=== PATIENT | male | born 1950 | race Caucasian/White ===

== ENCOUNTER → 2019-11-10 14:37 | Outpatient (CLI) | payer MEDICARE, SELFPAY ==
--- NOTE | 2019-11-10 14:51 | XR_ITS ---
PROCEDURE: XR LUMBAR SPINE 2-3V CLINICAL INDICATION: LOW BACK PAIN COMPARISON: CT HEADWO CT head/brain wo con from 08/29/2018 CR Chest from 08/29/2018 FINDINGS: There is mild lumbar scoliosis convex right. There is 13 sets of ribs with 4 lumbar vertebra. Degenerative disc disease is present at the thoracolumbar junction, L1-L2, L3-L4 and at the lumbosacral junction. Facet arthritic changes are present more severe on the left at the lumbosacral junction. No acute fracture or dislocation. IMPRESSION: Degenerative changes as described above Dictated by: Sheldon Garza MD 11/10/2019 15:32 Sheldon Garza MD in [place] 11/10/2019 15:32
== END ==
PROVIDERS: PCP Pediatrics; Visit Provider Pediatrics
DX: M54.40 Lumbago with sciatica, unspecified side (principal)
CPT/HCPCS: 72100

== ENCOUNTER 2021-05-11 13:27 | Emergency (ER) | payer MEDICARE, SELFPAY ==
[2021-05-11 13:42] VITALS: BP 132/87; PULSE 91; RESP 16; TEMP 37.1; O2SAT 95; BMI 25.7
[2021-05-11 14:02] LABS: UTC Strep Screen (Rapid) Negative (Negative)
[2021-05-11 14:03] LABS: UTC Influenza A Antigen Negative (Negative); UTC Influenza B Antigen Negative (Negative)
--- NOTE | 2021-05-11 14:25 | HMH.EDUTC ---
[facility] [place] Clinical Impression: Gastroenteritis Disposition: Home, Self-Care Condition on Discharge: Good Instructions: Viral Gastroenteritis, DI for Viral Gastroenteritis -- Adult, Ondansetron Additional Instructions: Drink plenty of fluids. Take tylenol or ibuprofen for pain or fever. Take the medications as directed. Follow up with your regular doctor. GO TO THE ER FOR ANY WORSENING SYMPTOMS Prescriptions: Ondansetron [Zofran 4mg ODT] 4 mg PO Q8HP PRN #20 tab PRN Reason: Nausea Transmission Status: [id number] Referrals: Francisco Coyle JR, MD [Primary Care Provider] - Time of Disposition: 16:03 Medical Decision Making - Medical Records Medical records reviewed: No: I reviewed the patient's medical records. - Maxwell Inquiry Pt receiving controlled substance: No Vital Signs: 05/11/21 13:42 05/11/21 16:17 Temperature 98.8 F 98.8 F Temperature Source Oral Pulse Rate 91 H Pulse Rate [Left] 91 H Respiratory Rate 16 16 Blood Pressure 132/87 Blood Pressure [Right Arm] 132/87 Blood Pressure Mean [Right Arm] 102 02 Sat by Pulse Oximetry 95 - Lab Data Lab Results 05/11/21 13:47: Influenza Type A Ag Negative, Influenza Type B Ag Negative 05/11/21 13:47: Strep Scn Rapid [facility] Negative 05/11/21 14:56: WBC 6.7, RBC 5.32, Hgb 17.0, Hct 51.6, MCV 96.9 H, MCH 31.9 H, MCHC 32.9, RDW 13.8, Plt Count 181, MPV 9.4, Neut % (Auto) 88.4 H, Lymph % (Auto) 5.8 L, Duval % (Auto) 5.2, Eos % (Auto) 0.2, Baso % (Auto) 0.4, Neut # (Auto) 5.9, Lymph # (Auto) 0.4 L, Duval # (Auto) 0.4, Eos # (Auto) 0.0, Baso # (Auto) 0.0, Total Counted 100, Neutrophils % (Manual) 88 H, Lymphocytes % (Manual) 2 L, Monocytes % (Manual) 10 H, Platelet Estimate Normal 05/11/21 14:56: Sodium 135 L, Potassium 3.7, Chloride 97 L, Carbon Dioxide 27, Anion Gap 14.7, BUN 17, Creatinine 1.00, Estimated Creat Clear 87, Estimated GFR 74, Est GFR ( Amer) 90, Glucose 144 H, Calcium 8.8, Total Bilirubin 1.0, AST 45, ALT 39, Alkaline Phosphatase 89, Total Protein 7.8, Albumin 4.9, Globulin 2.9, Albumin/Globulin Ratio 1.7, Amylase 79, Lipase 57 Result diagrams: 05/11/21 14:56 05/11/21 14:56 Orders (Tests/Meds): ED MEDICATIONS Discontinued Medications Generic Name Dose Route Start Last Admin Trade Name Freq PRN Reason Stop Dose Admin Sodium Chloride 1,000 mls @ 500 mls/hr 05/11/21 16:15 05/11/21 13:56 Sod Chlor 0.9% 1000ml Bag IV 06/10/21 16:14 500 mls/hr .Q2H KRISTINE Administration Ondansetron HCl 8 mg 05/11/21 15:59 05/11/21 16:17 Ondansetron 4mg Odt SL 05/11/21 16:00 8 mg ONCE ONE Administration ORDERS Category Date Time Status Strep Screen Confirmation Stat Micro 05/11/21 13:47 [place] [facility] [place] - General Stated complaint: vomiting, diarrhea Time Seen by Provider: 05/11/21 14:25 Mode of Arrival: Ambulatory Source of Information: Patient Limitations: No Limitations Description of Symptoms (Recalled from Triage Doc. by RN): pt c/o n/v/d and weakness x2 days. HEENT Symptoms (Recalled from RN notes): No Resp Symptoms (Recalled from RN notes): No Skin Symptoms (Recalled from RN notes): No MS Symptoms (Recalled from RN notes): No Functional Status (Recalled from RN notes): wnl - History of Present Illness Provider Complaint: He has had n/v/d for the past 2 days. - Related Data Previous Rx's Medication Instructions Recorded Meclizine HCl [Meclizine 25mg Tab] 25 mg PO TID PRN 7 Days #20 tab 08/29/18 Ondansetron [Zofran 4mg ODT] 4 mg PO Q8HP PRN #20 tab 05/11/21 Allergies Allergy/AdvReac Type Severity Reaction Status Date / Time No Known Allergies Allergy Verified 08/29/18 10:58 - Worker's Comp Is this a Worker's Comp case?: No [facility] History - Hepatitis A Screen Drug use history?: No High risk sexual behaviors?: No History of sexually transmitted infection?: No Currently employed?: No Childcare worker?: No Do you hav
[2021-05-11 15:09] LABS: Basophils % 0.4 % (0.1-2.0); Chloride 97 mmol/L (98-107); Eosinophils % 0.2 % (0.1-12.0); Hematocrit 51.6 % (42.0-52.0); Lymphocytes # 0.4 K/mm3 (0.7-4.5); Lymphocytes % 5.8 % (10-50); Mean Corpuscular HGB Conc 32.9 g/dL (31.8-35.4); Mean Corpuscular Hemoglobin 31.9 pg (27.0-31.2); Mean Corpuscular Volume 96.9 fl (80-94); Mean Platelet Volume 9.4 fl (7.4-10.4); Monocytes # 0.4 K/mm3 (0.1-1.0); Monocytes % 5.2 % (1.7-9.3); Neutrophils # 5.9 K/mm3 (1.8-7.8); Neutrophils % 88.4 % (37.0-80.0); Platelet Count 181 K/mm3 (142-424); Potassium 3.7 mmoL/L (3.5-5.1); Red Blood Count 5.32 M/mm3 (4.60-6.20); Red Cell Distribution Width 13.8 % (11.5-17.5); Sodium 135 mmol/L (136-145); White Blood Count 6.7 K/mm3 (4.8-10.8)
[2021-05-11 15:11] LABS: Alanine Aminotransferase 39 U/L (12-78); Amylase 79 U/L (30-110); Aspartate Amino Transferase 45 U/L (17-59); Blood Urea Nitrogen 17 mg/dl (9-20); Creatinine Clearance Estimated 87 mL/min (50-200); Estimated Glomerular Filt Rate 74 ml/min (>60); GFR (African American) 90 ML/MIN (>60)
[2021-05-11 15:12] LABS: Albumin Level 4.9 g/dl (3.5-5.0); Albumin/Globulin Ratio 1.7 (1.1-1.8); Alkaline Phosphatase 89 U/L (38-126); Anion Gap 14.7 mEq/L (5-15); Calcium 8.8 mg/dl (8.4-10.2); Carbon Dioxide 27 mmol/L (22.0-30.0); Globulin 2.9 g/dL (1.3-3.2); Glucose 144 mg/dl (74-100); Lipase 57 U/L (23-300); Total Protein,Serum 7.8 g/dl (6.3-8.2)
[2021-05-11 15:14] LABS: MANUAL DIFFERENTIAL MANUAL DIFFERENTIAL (MANUAL DIFF)
[2021-05-11 16:08] LABS: Lymphocytes % 2 % (10-50); Monocytes % 10 % (2-9); Neutrophils % 88 % (42-76); Platelet Estimate Normal; Total Cells Counted 100
[2021-05-11 16:17] VITALS: BP 132/87; PULSE 91; RESP 16; TEMP 37.1
== END 2021-05-11 16:19 | disposition home or self-care (01) ==
PROVIDERS: Emergency Provider Nurse Practitioner Family; PCP Pediatrics
DX: K52.9 Noninfective gastroenteritis and colitis, unspecified (principal)
CPT/HCPCS: G0463; 80053; 82150; 83690; 85007; 85025; 87804; 87880; 96360; 99213; C9803; U0003; U0005

== ENCOUNTER 2021-10-01 11:55 | Emergency (ER) | payer MEDICARE, SELFPAY ==
[2021-10-01 12:40] VITALS: BP 141/87; PULSE 71; RESP 19; TEMP 36.9; O2SAT 98; BMI 25.0
--- NOTE | 2021-10-01 13:08 | HMH.EDUTC ---
[facility] [place] Disposition Clinical Impression: Exposure to COVID-19 virus Disposition: Home, Self-Care Condition on Discharge: Good Instructions: DI for COVID-19 (Suspected or Confirmed ), COVID-19: Protecting Yourself When You're at High Risk Additional Instructions: covid swab was sent to lab, call tomorrow for results. self isolate until test results are known to be negative No sign of a bacterial infection. Likely viral. Viruses can take 7-14 days to run their course. Nasal saline and bulb syringe or nose Nancy to remove nasal drainage to help with nasal congestion. Hard to eat, drink, sleep with nasal congestion so important to keep this cleaned out. Monitor temp. Tylenol or Motrin as needed for pain or fever Encourage fluids, water, Gatorade, Powerade, Pedialyte if infant/toddler/child Warm salt water gargles Warm fluids Sore throat lozenges Sleep elevated Humidifier/vaporizer Follow-up immediately for new or worsening symptoms or no noticeable improvement over the next 48-72 hours. Referrals: Provider,Referral, [Primary Care Provider] - Time of Disposition: 13:21 Medical Decision Making - Maxwell Inquiry Pt receiving controlled substance: No Vital Signs: 10/01/21 12:40 10/01/21 13:19 Temperature 98.4 F 98.4 F Temperature Source Oral Pulse Rate 71 Pulse Rate [Right Brachial] 71 Respiratory Rate 19 19 Blood Pressure 141/87 H Blood Pressure [Right Arm] 141/87 H Blood Pressure Mean [Right Arm] 105 Blood Pressure Source [Right Arm] Automatic Cuff Blood Pressure Position [Right Arm] Sitting 02 Sat by Pulse Oximetry 98 Oxygen Delivery Method Room Air Orders (Tests/Meds): ORDERS Category Date Time Status Covid-19 Nasal PCR ([facility]) Routine Lab 10/01/21 12:40 Received [facility] [place] HPI - General Chief complaint: Urgent Treatment Center Stated complaint: RUNNY NOSE-SORE THROAT Time Seen by Provider: 10/01/21 13:08 Mode of Arrival: Ambulatory Source of Information: Patient Limitations: No Limitations Description of Symptoms (Recalled from Triage Doc. by RN): COVID TEST D/T EXPOSURE HEENT Symptoms (Recalled from RN notes): No Resp Symptoms (Recalled from RN notes): No Skin Symptoms (Recalled from RN notes): No MS Symptoms (Recalled from RN notes): No Functional Status (Recalled from RN notes): WNL - History of Present Illness Provider Complaint: 71 yr old male presents for covid test. pt states he was exposed and having runny nose and cough - Related Data Previous Rx's Medication Instructions Recorded Meclizine HCl [Meclizine 25mg Tab] 25 mg PO TID PRN 7 Days #20 tab 08/29/18 Ondansetron [Zofran 4mg ODT] 4 mg PO Q8HP PRN #20 tab 05/11/21 Allergies Allergy/AdvReac Type Severity Reaction Status Date / Time No Known Allergies Allergy Verified 08/29/18 10:58 - Worker's Comp Is this a Worker's Comp case?: No [facility] History - Hepatitis A Screen Attestation statement:: This patient has been screened for Hepatitis A risk factors. I have reviewed the patient's past medical history: Yes Medical History: Denies:: Diabetes Mellitus Type 1, Diabetes Mellitus Type 2 - Social History Alcohol Intake: never Occupational Status: retired ROS Obtained: Yes Systems reviewed as appropriate & no additional complaints - Constitutional Constitutional: Reports system reviewed and no additional complaints, except as docu, Denies fever(s) - Eyes Eyes: Reports system reviewed and no additional complaints, except as docu, Denies change in vision - ENT Ears, Nose, Mouth, and Throat: Reports system reviewed and no additional complaints, except as docu, Reports nasal discharge - Cardiovascular Cardiovascular: Reports system reviewed and no additional complaints, except as docu, Denies chest pain - Respiratory Respiratory: Reports system reviewed and no additional complaints, except as docu, Reports cough - Gastrointestinal Gastrointestingal: Reports: system reviewed and no additional
[2021-10-01 13:19] VITALS: BP 141/87; PULSE 71; RESP 19; TEMP 36.9; O2SAT 98
== END 2021-10-01 13:29 | disposition home or self-care (01) ==
PROVIDERS: Emergency Provider Nurse Practitioner Family
DX: R07.0 Pain in throat (principal); Z20.822 Contact with and (suspected) exposure to COVID-19; R09.81 Nasal congestion; R05.9 Cough, unspecified
CPT/HCPCS: 99212; C9803; G0463; U0003; U0005

== ENCOUNTER 2021-10-15 15:12 | Emergency (ER) | payer MEDICARE, SELFPAY ==
--- NOTE | 2021-10-15 15:18 | XR_ITS ---
PROCEDURE INFORMATION: Exam: XR Right Hip Exam date and time: 10/15/2021 3:18 PM Age: 71 years old Clinical indication: Hip pain; Right hip; Additional info: Injury. Twisted and is unable to bear weight. TECHNIQUE: Imaging protocol: Radiologic exam of the Right hip. Views: 2 or 3 views hip with pelvis when performed. COMPARISON: CR XR LUMBAR SPINE 2-3V 11/10/2019 2:54 PM FINDINGS: Bones/joints: There are mild degenerative changes in the right hip joint. There is no evidence of acute fracture. There is no evidence of joint malalignment or dislocation. Soft tissues: No focal soft tissue swelling. IMPRESSION: 1. There are mild degenerative changes in the right hip joint. 2. No evidence of acute fracture. 3. No evidence of acute dislocation.
[2021-10-15 15:35] VITALS: BP 140/77; PULSE 77; RESP 19; TEMP 36.7; O2SAT 95; BMI 24.5
--- NOTE | 2021-10-15 15:50 | HMH.EDUTC ---
[facility] [place] Disposition Clinical Impression: Hip pain, right Disposition: Home, Self-Care Condition on Discharge: Good Instructions: Help for Hip Pain, Sciatica Additional Instructions: Weight bearing as tolerated rest Ice with cold pack for 20 minutes remove may repeat for comfort every hour Ibuprofen every 6 hours as needed for pain or inflammation. If needs something more you can take Tylenol every 4 hours as needed as long as her primary care has told he was okayed for you to take both. If improving any do not need to follow-up you can bring begin exercising 2-3 weeks after injury. Follow-up immediately if new or worsening symptoms or no noticeable improvement over the next 3-5 days. follow up with pcp Referrals: Provider,Referral, [Primary Care Provider] - Time of Disposition: 16:21 Medical Decision Making - Maxwell Inquiry Pt receiving controlled substance: No Vital Signs: 10/15/21 15:35 Temperature 98.0 F Temperature Source Oral Pulse Rate [Left Brachial] 77 Respiratory Rate 19 Blood Pressure [Left Arm] 140/77 Blood Pressure Mean [Left Arm] 98 Blood Pressure Source [Left Arm] Automatic Cuff Blood Pressure Position [Left Arm] Sitting 02 Sat by Pulse Oximetry 95 Oxygen Delivery Method Room Air Orders (Tests/Meds): ED MEDICATIONS Discontinued Medications Generic Name Dose Route Start Last Admin Trade Name Freq PRN Reason Stop Dose Admin Dexamethasone Sodium Phosphate 4 mg 10/15/21 16:15 Dexamethasone 4mg/Ml 1ml Vial IM 10/15/21 16:16 ONCE ONE [facility] [place] HPI - General Chief complaint: Urgent Treatment Center Stated complaint: pain in R leg, hip, cannot walk Time Seen by Provider: 10/15/21 15:50 Mode of Arrival: Ambulatory Source of Information: Patient Limitations: No Limitations Description of Symptoms (Recalled from Triage Doc. by RN): PATIENT REPORTS THAT HE TWISTED HIS LOWER BACK YESTERDAY AND AFTERWARD HAD SHARP PAIN TO RIGHT HIP AND THIGH ALL NIGHT, RATING IT 10/10. TODAY HE STATES HIS RIGHT HIP AND LEG FEELS LIKE JELLO AND HE CAN'T WALK ON IT HEENT Symptoms (Recalled from RN notes): No Resp Symptoms (Recalled from RN notes): No Skin Symptoms (Recalled from RN notes): No MS Symptoms (Recalled from RN notes): Yes Functional Status (Recalled from RN notes): WNL - History of Present Illness Provider Complaint: 71 yr old male presents for pain in rt hip. Pt states he was outside yestrday and twisted his lower back and felt a sharp pain in rt hip and thigh. pt states he got up to go to bathroom and can not walk. pt states he can not get his leg to work. - Related Data Allergies Allergy/AdvReac Type Severity Reaction Status Date / Time No Known Allergies Allergy Verified 08/29/18 10:58 - Worker's Comp Is this a Worker's Comp case?: No [facility] History - Hepatitis A Screen Attestation statement:: This patient has been screened for Hepatitis A risk factors. I have reviewed the patient's past medical history: Yes Medical History: Denies:: Diabetes Mellitus Type 1, Diabetes Mellitus Type 2 - Social History Alcohol Intake: never Occupational Status: retired ROS Obtained: Yes Systems reviewed as appropriate & no additional complaints - Constitutional Constitutional: Reports system reviewed and no additional complaints, except as docu, Denies fever(s) - Eyes Eyes: Reports system reviewed and no additional complaints, except as docu, Denies dry eyes - ENT Ears, Nose, Mouth, and Throat: Reports system reviewed and no additional complaints, except as docu, Denies lip swelling - Cardiovascular Cardiovascular: Reports system reviewed and no additional complaints, except as docu, Denies chest pain at rest - Respiratory Respiratory: Reports system reviewed and no additional complaints, except as docu, Denies change in phlegm color - Gastrointestinal Gastrointestingal: Reports: system reviewed and no additional complaints, except as docu. Denies: abdominal pain
[2021-10-15 16:22] VITALS: BP 140/77; PULSE 77; RESP 19; TEMP 36.7; O2SAT 95
== END 2021-10-15 16:33 | disposition home or self-care (01) ==
PROVIDERS: Emergency Provider Nurse Practitioner Family
DX: M25.551 Pain in right hip (principal)
CPT/HCPCS: 73502; 96372; 99212; G0463

== ENCOUNTER 2021-12-02 14:00 | Outpatient (RCR) | payer MEDICARE, SELFPAY | END 2021-12-02 14:05 | disposition home or self-care (01) | LOC: PT 14:00 | PROVIDERS: PCP Family Medicine; Visit Provider Family Medicine | DX: M54.50 Low back pain, unspecified (principal); M54.30 Sciatica, unspecified side | CPT/HCPCS: 97010; 97012; 97014; 97110; 97163; G0283 ==

== ENCOUNTER → 2021-12-21 13:48 | Outpatient (CLI) | payer MEDICARE, SELFPAY ==
[2021-12-21 17:01] LABS: Alanine Aminotransferase 24 U/L (12-78); Albumin/Globulin Ratio 1.6 (1.1-1.8); Alkaline Phosphatase 90 U/L (38-126); Aspartate Amino Transferase 27 U/L (17-59); Bilirubin,Total 0.5 mg/dl (0.2-1.3); Blood Urea Nitrogen 14 mg/dl (9-20); Carbon Dioxide 31 mmol/L (22.0-30.0); Chloride 100 mmol/L (98-107); Estimated Glomerular Filt Rate 96 ml/min (>60); GFR (African American) 116 ML/MIN (>60); Globulin 2.5 g/dL (1.3-3.2); Glucose 97 mg/dl (74-100); Sodium 139 mmol/L (136-145); Total Protein,Serum 6.5 g/dl (6.3-8.2)
== END ==
PROVIDERS: PCP Family Medicine; Visit Provider Family Medicine
DX: M25.551 Pain in right hip (principal)
CPT/HCPCS: 36415; 80053

== ENCOUNTER → 2021-12-22 08:36 | Outpatient (CLI) | payer MEDICARE, SELFPAY ==
--- NOTE | 2021-12-22 08:36 | MR_ITS ---
FINAL REPORT CLINICAL HISTORY: with contrast bilateral leg weakness , burning sensation from knees down no injury/trauma FINDINGS: Multiplanar MR imaging of the lumbar spine was performed without contrast. On the sagittal T2-weighted images, there is abnormal decreased signal throughout the lumbar discs. Endplate reactive signal changes are most evident at L4-L5. The vertebrae are of normal height. There is minimal spondylolisthesis of L4 on L5. L1-2: There is no significant canal stenosis or neural foraminal narrowing. L2-3: There is no significant canal stenosis or neural foraminal narrowing. L3-4: Mild broad-based right paracentral disc protrusion with an extruded component extending inferiorly. Moderate to high-grade compromise on the right lateral recess. L4-5: Moderate to large disc bulge with a left paracentral protrusion component. Moderate right and high-grade left neural foraminal narrowing. L5-S1: Mild diffuse disc bulge with mild bilateral neural foraminal narrowing. Contrast enhancement surrounding extruded disc fragment on the right at L3-L4. Contrast enhancement surrounding protrusion on the left at L4-L5. IMPRESSION: Right paracentral inferior extrusion at L3-L4 with compromise on the right lateral recess and surrounding epidural fibrosis. Left paracentral protrusion at L4-L5 with surrounding epidural fibrosis. Reviewed, Interpreted and Dictated by Perico Velazquez MD Transcribed by Nabeel Lau Authenticated and . [facility]
== END ==
PROVIDERS: PCP Family Medicine; Visit Provider Family Medicine
DX: R29.898 Other symptoms and signs involving the musculoskeletal system (principal)
CPT/HCPCS: 72158; 76376; A9576

== ENCOUNTER → 2022-02-21 12:36 | Outpatient (CLI) | payer MEDICARE, SELFPAY ==
--- NOTE | 2022-02-21 12:41 | MR_ITS ---
FINAL REPORT CLINICAL HISTORY: .BILATERAL LOWER LEG WEAKNESS. BURNING SENSATION LOWER LEGS TO FEET. RIGHT HIP AND LEG PAIN TO KNEE. NO INJURY OR TRAUMA. FINDINGS: Multiplanar MR imaging of the thoracic spine was performed without contrast. On the sagittal T2-weighted images, disc degeneration is seen throughout. There is no evidence of fracture. The vertebral alignment is normal. There are several hemangiomas. The thoracic spinal cord has an unremarkable appearance without evidence of mass, edema or syrinx. There is no evidence of significant canal stenosis or cord compression. On the axial images, mild disc bulges and small anterior osteophytes are seen at multiple levels. No focal soft disc protrusion is identified. There is no evidence of significant canal stenosis or cord compression. No paraspinous soft tissue abnormality is identified. IMPRESSION: Multilevel mild degenerative disc disease and spondylosis. No focal soft disc protrusion or significant central canal stenosis. Reviewed, Interpreted and Dictated by Dutch Lim III, MD Transcribed by Nabeel Lau Authenticated and [facility]
--- NOTE | 2022-02-21 12:41 | MR_ITS ---
FINAL REPORT CLINICAL HISTORY: WEAKNESS OF LEFT LOWER EXTREMITY. .BILATERAL LOWER LEG WEAKNESS. BURNING SENSATION LOWER LEGS TO FEET. RIGHT HIP AND LEG PAIN TO KNEE. NO INJURY OR TRAUMA. FINDINGS: Multiplanar MR imaging of the cervical spine was performed without contrast. On the sagittal T2-weighted images, disc degeneration is seen throughout. There is kyphosis centered at C6-C7. There is no evidence of fracture. The vertebral alignment is normal. The cervical spinal cord has an unremarkable appearance without evidence of mass, edema or syrinx. The cervicomedullary junction is normal. C2-3: There is no significant canal stenosis or neural foraminal narrowing. C3-4: There is an annular bulge with uncovertebral osteophytes. There is severe bilateral neural foraminal narrowing. C4-5: There is an annular bulge with uncovertebral osteophytes. There is severe bilateral neural foraminal narrowing. There is mild central canal stenosis with an AP thecal sac diameter of 9 mm. C5-6: There is an annular bulge with a left paracentral disc protrusion and possible left C6 nerve root impingement. There is severe bilateral neural foraminal narrowing. C6-7: There is a disc osteophyte complex. There is mild right and moderate left neural foraminal narrowing. C7-T1: There is a disc osteophyte complex. There is moderate bilateral neural foraminal narrowing. T1-T2: An annular bulge is present. IMPRESSION: Multilevel degenerative disc disease with areas of neural foraminal narrowing as described. Left paracentral disc protrusion at C5-C6 with possible left C6 nerve root impingement. Mild central canal stenosis at C4-C5. Reviewed, Interpreted and Dictated by Dutch Lim III, MD Transcribed by Nabeel Lau Authenticated and [facility]
== END ==
PROVIDERS: PCP Family Medicine; Visit Provider Physician Assistant Medical
DX: R29.898 Other symptoms and signs involving the musculoskeletal system (principal); R29.6 Repeated falls; R26.81 Unsteadiness on feet
CPT/HCPCS: 72141; 72146; 76376

== ENCOUNTER → 2022-03-15 14:48 | Outpatient (POV) | payer MEDICARE, SELFPAY ==
--- NOTE | 2022-03-15 15:36 | EXP.PAIN.OV ---
HPI Data of Consult Patient: new to practice Consult date: 03/15/22 Requesting Physician: Debby Montgomery APRN Primary Care Provider: Ethan Kendrcik MD Consult Narrative Reason for consult: Low back pain, right leg pain History of present illness: Mr. Aleman is a 71 year old male who presents today as a new patient. He is a referral from Arlene Arizmendi's office. Today he rates his pain a 7 out of 10. Patient states he has pain all in his low back along the right side into his right hip and right upper thigh. Patient states this has been going on for the last several months. Patient states that earlier this year he was getting off of the lawnmower and stepped down and lost his footing and fell. Patient states he has continued to have symptoms since. Patient describes this as a constant achy sensation that is worse with increased activity. patient also states he does have burning/tingling to his bilateral lower extremities that has been going on for approximately 1 year or more. Patient has been to a neurosurgeon Dr. Sears who did recommend our office for possible lumbar epidurals to avoid surgery. Patient does take gabapentin 100 mg 3 times a day written by Dr. Sears office. Patient denies any side effects from this medication. Patient states this medication does provide significant improvement. Patient does take [id number] ibuprofen as needed for additional improvement. Patient states he did go to physical therapy for approximately 2 weeks and this did provide help however insurance denied any more visits. Patient states he is continue to do the at home exercising and stretching techniques that he was taught in physical therapy with minimal improvement. Patient denies using any creams or topicals. Patient states he does use heat and ice that provides significant improvement however only temporary. Patient does present today with a rolling walker as a ambulatory device. Patient denies any history of surgery on his back or history of injections. Patient is interested in any additional help that we can provide. His Maxwell is [phone]. It has been reviewed and appropriate. CC: Debby Montgomery APRN [facility] Disclaimer: The information contained in this section may have been updated after the patient was seen, as this information can be updated by other users. Medical History Hypertension Surgical History History of hernia surgery History of tonsillectomy Family History Father Diabetes mother Coronary artery disease father had heart attack Social History (Updated 03/15/22 @ 16:01 by Vashti Jama RN) Smoking Status: Never smoker alcohol intake: never current occupational status: retired Travel in the last 8 weeks: None Review of Systems Review of Systems Review of systems:: pertinent systems reviewed and negative unless documented below Review of systems (narrative): Review of Systems: General: No recent weight changes, no fever, no sleep disturbances Respiratory: No cough, no shortness of air, no recurring pulmonary infections Cardiovascular/peripheral vascular: No chest pain, no palpitations, no edema, no shortness of breath Gastrointestinal: No new onset incontinence, normal bowel movements reported Genitourinary: No new onset incontinence Musculoskeletal: Low back pain, right leg pain Psychiatric: [Normal mood/affect] Neurological: [Denies weakness in extremities], [denies balance issues] Meds Home Medications and Allergies Home Medications Medication Instructions Recorded Confirmed Type gabapentin 100 mg capsule 100 mg PO DAILY Pain 03/15/22 03/15/22 History lisinopril 20 mg tablet 20 mg PO DAILY BLOOD PRESSURE 03/15/22 History New Prescriptions to Start Prescriptions: Allergies Allergy/AdvReac Type Emily
[2022-03-15 15:45] VITALS: BP 135/84; PULSE 68; RESP 18; O2SAT 99; BMI 24.6
== END ==
PROVIDERS: PCP Family Medicine; Visit Provider Nurse Practitioner Family
DX: M51.16 Intervertebral disc disorders with radiculopathy, lumbar region (principal); M79.604 Pain in right leg; M43.16 Spondylolisthesis, lumbar region
CPT/HCPCS: 99202; G0463

== ENCOUNTER 2022-03-21 12:39 | Day surgery (SDC) | payer MEDICARE, SELFPAY ==
[2022-03-21 12:51] VITALS: BP 144/76; PULSE 72; RESP 18; TEMP 36.8; O2SAT 100; BMI 24.6
[2022-03-21 12:53] VITALS: BP 144/62; PULSE 68; RESP 18; O2SAT 98
--- NOTE | 2022-03-21 13:03 | P.PCN_ITS ---
Procedure Date: 03/21/22 Time: 12:50 Anesthesiologist:: Perico Quiñones CRNA Complications:: None Pre-procedure Diagnosis:: Degenerative disc disease lumbar spine multiple levels. Lumbar radiculopathy. Disc bulge L3-4, L4-5. Post-procedure Diagnosis:: Same. Indications for Procedure:: Very pleasant 71-year-old male comes to our clinic today for right L4-5, L5-S1 transforaminal epidural steroid injection. Patient complains of low right lumbar pain as well as right hip and leg radicular symptoms to the foot. Patient rates his pain 7/10. Procedure Details:: Details of the procedure were explained to the patient. The patient was taken the procedure room placed in the prone position. The area of the lumbar spine was cleansed using chlorhexidine as a cleansing solution. At this time using fluoroscopy guidance markers were placed on the right lateral border of the L4 and L5 vertebral body. The skin and subcutaneous tissue was anesthetized using 1% lidocaine and 25-gauge needle. At this time using a 22-gauge 3-1/2 inch spinal needle the right upper one third of the L4-5 foramen was accessed. The same was done at the right L5-S1 foramen. Needle positions were confirmed and a lateral view using fluoroscopy and contrast dye. At this time 1 cc of 1% lidocaine +20 mg of Depo-Medrol was injected at each level after negative aspiration. [place] were removed. Band-Aid applied. Patient tolerated the procedure without difficulty. There are no complications. Plan and Disposition:: Patient was discharged without incident
[2022-03-21 13:05] VITALS: BP 134/70; PULSE 66; RESP 18; O2SAT 100
== END 2022-03-21 13:05 | disposition home or self-care (01) ==
PROVIDERS: PCP Family Medicine; Visit Provider Nurse Anesthetist, Certified Registered
DX: M51.16 Intervertebral disc disorders with radiculopathy, lumbar region (principal)
CPT/HCPCS: 64483; 64484; J1030

== ENCOUNTER → 2022-04-03 13:12 | Outpatient (POV) | payer MEDICARE, SELFPAY ==
[2022-04-03 13:49] VITALS: BP 144/72; PULSE 67; RESP 18; O2SAT 97; BMI 24.9
--- NOTE | 2022-04-03 13:53 | A.OFFVIS_ITS ---
[facility] Pain Management SOAP Note Subjective:: Patient is a pleasant 71-year-old who presents today for follow-up of right transforaminal epidural steroid injection at L4-L5 and L5-S1 on 03/21/2022. We are currently treating the patient for low back pain, degenerative disc disease of lumbar spine with lumbar radiculopathy symptoms, right leg pain, spondylolisthesis of L4-L5. Today the patient states he has had at least 90 to 100% improvement following this injection and the combination of gabapentin 100 mg 3 times a day added to his medication regimen. Patient states the tingling sensations in his lower legs has greatly improved. Patient states he has been able to increase his activity with decreased pain. Patient does state he continues to have some right hip pain however overall he is doing well. Patient does believe that he has a right knee meniscus tear however he states he has not had any imaging of this joint. Patient continues to use heat and ice for temporary relief his Maxwell is [id number]. Its been reviewed and appropriate. Review of Systems: General: No recent weight changes, no fever, no sleep disturbances Respiratory: No cough, no shortness of air, no recurring pulmonary infections Cardiovascular/peripheral vascular: No chest pain, no palpitations, no edema, no shortness of breath Gastrointestinal: No new onset incontinence, normal bowel movements reported Genitourinary: No new onset incontinence Musculoskeletal: Low back pain, right hip pain Psychiatric: [Normal mood/affect] Neurological: [Denies weakness in extremities], [denies balance issues] Objective:: Physical Exam: General: Alert and oriented x3, no acute distress, pleasant and cooperative Lungs: Respirations even and unlabored, symmetrical chest expansion Eyes: PERRL Musculoskeletal: Flexion and extension of lumbar [spine] somewhat guarded secondary to pain, [antalgic gait noted] Neurological: Speech clear, no gross sensory deficit ORT score updated with low risk Assessment:: Low back pain, degenerative disc disease of lumbar spine with lumbar radiculopathy symptoms, right leg pain, spondylolisthesis of L4-L5 Plan:: Patient has had significant improvement following his transforaminal epidural and does not require any additional therapy at this time. I have discussed with the patient that he may benefit from physical therapy in the future for his right knee and right hip pain however at this time he would like to wait. I have also discussed with the patient that we can order right knee imaging in the future. Patient will return to clinic in 1 month for reevaluation of symptoms and follow-up. Patient has been instructed to contact the clinic with any concerns before the next appointment. Dr. Tarango has reviewed this note and agrees with this plan of care. This note was dictated using voice recognition software and make contain errors or omissions. [facility] Disclaimer: The information contained in this section may have been updated after the patient was seen, as this information can be updated by other users. Medical History Hypertension Surgical History History of hernia surgery History of tonsillectomy Family History Father Diabetes mother Coronary artery disease father had heart attack Social History Smoking Status: Never smoker alcohol intake: never current occupational status: retired Travel in the last 8 weeks: None
== END ==
PROVIDERS: PCP Family Medicine; Visit Provider Nurse Practitioner Family
DX: M51.16 Intervertebral disc disorders with radiculopathy, lumbar region (principal); M43.16 Spondylolisthesis, lumbar region; M79.604 Pain in right leg
CPT/HCPCS: 99212; G0463

== ENCOUNTER → 2022-05-08 13:15 | Outpatient (POV) | payer MEDICARE, SELFPAY ==
--- NOTE | 2022-05-08 13:30 | EXP.PAIN.SOA ---
[facility] Pain Management SOAP Note Subjective:: Patient is a pleasant 71-year-old male who presents today for 1 month follow-up. We are currently treating the patient for degenerative disc disease of lumbar spine with lumbar radiculopathy symptoms, low back pain, right leg pain, spondylolisthesis of L4 on L5. Today he rates his pain a 0 out of 10. Patient denies any new trauma or injury. Patient denies any change to location or type of pain he experiences. Patient states that the last injection still seems to be providing significant relief. Patient did have a right transforaminal epidural of L4-L5 and L5-S1 on 03/21/2022. Patient rates at least 90 to 100% improvement. Patient states that he will occasionally still have pain along his right side at night when he sleeping however this is very tolerable and does not require any interventional therapy at this time. Patient is prescribed gabapentin 100 mg 3 times a day. Patient states that he is currently trying to wean off his gabapentin and Dr. Sears has gone over the recommendations for decreasing the dosage safely. Patient denies any specific side effects from coming off of this medication. Patient states that he has had 3 days this week of indigestion which is not typical for him. Patient states he is still continuing at home exercising to improve his strength in his legs. His Maxwell is [id number]. Its been reviewed and appropriate. Review of Systems: General: No recent weight changes, no fever, no sleep disturbances Respiratory: No cough, no shortness of air, no recurring pulmonary infections Cardiovascular/peripheral vascular: No chest pain, no palpitations, no edema, no shortness of breath Gastrointestinal: No new onset incontinence, normal bowel movements reported Genitourinary: No new onset incontinence Musculoskeletal: Low back pain Psychiatric: [Normal mood/affect] Neurological: [Denies weakness in extremities], [denies balance issues] Objective:: Physical Exam: General: Alert and oriented x3, no acute distress, pleasant and cooperative Lungs: Respirations even and unlabored, symmetrical chest expansion Eyes: PERRL Musculoskeletal: Flexion and extension of lumbar [spine] somewhat guarded secondary to pain, [antalgic gait noted] Neurological: Speech clear, no gross sensory deficit Assessment:: degenerative disc disease of lumbar spine with lumbar radiculopathy symptoms, low back pain, right leg pain, spondylolisthesis of L4 on L5 Plan:: Patient continues to have significant relief following his last right transforaminal epidural. I have counseled the patient that he may benefit from physical therapy however at this time he would like to continue his at home exercising. I have counseled the patient that he just has to let me know if he would like for us to order this additionally. Patient will return to clinic in 3 months for reevaluation of symptoms and plan of care. Patient has been instructed to contact the clinic with any concerns before the next appointment. Dr. Tarango has reviewed this note and agrees with this plan of care. This note was dictated using voice recognition software and make contain errors or omissions. [facility] Disclaimer: The information contained in this section may have been updated after the patient was seen, as this information can be updated by other users. Medical History Hypertension Surgical History History of hernia surgery History of tonsillectomy Family History Father Diabetes mother Coronary artery disease father had heart attack Social History Smoking Status: Never smoker alcohol intake: never current occupational status: retired Travel in the last 8 weeks: None
[2022-05-08 13:38] VITALS: BP 133/82; PULSE 62; RESP 18; O2SAT 98; BMI 24.6
== END ==
PROVIDERS: PCP Family Medicine; Visit Provider Nurse Practitioner Family
DX: M51.16 Intervertebral disc disorders with radiculopathy, lumbar region (principal); M43.16 Spondylolisthesis, lumbar region; M79.604 Pain in right leg
CPT/HCPCS: 99212; G0463

== ENCOUNTER → 2022-08-03 13:41 | Outpatient (POV) | payer MEDICARE, SELFPAY ==
[2022-08-03 13:59] VITALS: BP 155/77; PULSE 59; RESP 19; O2SAT 97; BMI 25.0
--- NOTE | 2022-08-03 14:03 | A.OFFVIS_ITS ---
[facility] Pain Management SOAP Note Subjective:: Patient is a pleasant 71-year-old male who presents today for follow-up. We are currently treating the patient for degenerative disc disease of lumbar spine with lumbar radiculopathy symptoms, low back pain, spondylolisthesis of L4 on L5. Today he rates his pain a 0 out of 10. Patient denies any new trauma or injury. He states he still feels like he is getting some improvements from the right transforaminal epidural he had back in March. He does state he will occasionally have pain in his right hip and right thigh but it is random or at times when he has had increased activity. He does state that he feels like he is still not walking in the correct positioning and will occasionally have weakness. Patient does use a rolling walker for help with ambulation. Patient is not currently on any scheduled medications. His Maxwell is [id number]. Has been reviewed and appropriate. Review of Systems: General: No recent weight changes, no fever, no sleep disturbances Respiratory: No cough, no shortness of air, no recurring pulmonary infections Cardiovascular/peripheral vascular: No chest pain, no palpitations, no edema, no shortness of breath Gastrointestinal: No new onset incontinence, normal bowel movements reported Genitourinary: No new onset incontinence Musculoskeletal: Low back pain Psychiatric: [Normal mood/affect] Neurological: [Denies weakness in extremities], [denies balance issues] Objective:: Physical Exam: General: Alert and oriented x3, no acute distress, pleasant and cooperative Lungs: Respirations even and unlabored, symmetrical chest expansion Eyes: PERRL Musculoskeletal: Flexion and extension of lumbar [spine] somewhat guarded secondary to pain, [antalgic gait noted] Neurological: Speech clear, no gross sensory deficit Assessment:: Degenerative disc disease of lumbar spine with lumbar radiculopathy symptoms, low back pain, spondylolisthesis of L4 on L5 Plan:: Patient is doing well following his transforaminal epidural from March and does not require any additional injective therapy at this time. I will order the patient physical therapy. Patient will return to clinic in 3 months for reevaluation of symptoms and plan of care. Patient has been instructed to contact the clinic with any concerns before the next appointment. Dr. Tarango has reviewed this note and agrees with this plan of care. This note was dictated using voice recognition software and make contain errors or omissions. [facility] Disclaimer: The information contained in this section may have been updated after the patient was seen, as this information can be updated by other users. Medical History Hypertension Surgical History History of hernia surgery History of tonsillectomy Family History Father Diabetes mother Coronary artery disease father had heart attack Social History Smoking Status: Never smoker alcohol intake: never current occupational status: retired Travel in the last 8 weeks: None
== END ==
PROVIDERS: PCP Family Medicine; Visit Provider Nurse Practitioner Family
DX: M51.16 Intervertebral disc disorders with radiculopathy, lumbar region (principal); M43.16 Spondylolisthesis, lumbar region
CPT/HCPCS: 99212; G0463

== ENCOUNTER 2022-08-08 18:43 | Emergency (ER) | payer MEDICARE, SELFPAY ==
[2022-08-08 18:44] VITALS: BP 142/84; PULSE 67; RESP 18; TEMP 37; O2SAT 95; BMI 25.7
--- NOTE | 2022-08-08 18:54 | EXP.UTC ---
Discharge Plan Disposition Patient Disposition: Home, Self-Care Prescriptions Prescriptions: New ondansetron HCl 4 mg Tablet 4 mg PO Q8H PRN (Reason: Nausea) Qty: 20 0RF Referrals Follow up/Referrals: Ethan Kendrick MD [Primary Care Provider] - See instructions Clinical Impressions Clinical Impression: Enteritis, Gastroesophageal reflux disease Instructions Patient Instructions: DI for Enteritis Discharge ED Provider: Fabricio (SELAM)Anmol [facility] HPI General Chief complaint: Abdominal Pain Stated complaint: Diarrhea possible Acid Reflex Time Seen by Provider: 08/08/22 18:54 Related Data Previous Rx's Medication Instructions Recorded ondansetron HCl 4 mg tablet 4 mg PO Q8H PRN Nausea #20 tabs 08/09/22 Allergies Allergy/AdvReac Type Severity Reaction Status Date / Time No Known Allergies Allergy Verified 12/22/21 10:54 [facility] Disclaimer: The information contained in this section may have been updated after the patient was seen, as this information can be updated by other users. Medical History Hypertension Surgical History History of hernia surgery History of tonsillectomy Family History Father Diabetes mother Coronary artery disease father had heart attack Social History Smoking Status: Never smoker alcohol intake: never current occupational status: retired Travel in the last 8 weeks: None ROS Obtained: Yes All systems reviewed & no additional complaints except as documented Constitutional Constitutional: Denies chills, Denies fever(s) and Reports poor appetite ENT Ears, Nose, Mouth, and Throat: Denies dizziness and Denies sore throat Cardiovascular Cardiovascular: Denies dyspnea Respiratory Respiratory: Denies chest congestion, Denies cough and Denies dyspnea Genitourinary Male Genitourinary: Denies hematuria, Denies urinary frequency, Denies urinary hesitancy, Denies urinary incontinence and Denies urinary urgency Musculoskeletal Musculoskeletal: Denies arthralgias Integumentary/Breasts Skin/Breast: Denies rash Neurologic Neurologic: Denies dizziness Physical Exam General General appearance: alert and in no apparent distress Head Head exam: atraumatic, normocephalic and normal inspection Eye Eye exam: Present normal appearance, PERRL and EOMI ENT ENT exam: Present normal exam, normal oropharynx, mucous membranes moist, TM's normal bilaterally and normal external ear exam Neck Neck exam: Present normal inspection, full ROM and trachea midline; Absent meningismus or lymphadenopathy Chest Chest inspection: Present normal inspection and symmetric chest wall rise; Absent tenderness Respiratory Respiratory exam: Present normal lung sounds bilaterally; Absent respiratory distress Cardiovascular Cardiovascular exam: Present regular rate and normal rhythm; Absent JVD Abdominal Exam Abdominal exam: Present soft and normal bowel sounds; Absent distention, tenderness or guarding Extremities Exam Extremities exam: Present normal inspection, full ROM and normal capillary refill; Absent calf tenderness Back Exam Back exam: Present normal inspection; Absent tenderness Neurological Exam Neurological exam: Present alert and oriented X3 Psychiatric Psychiatric exam: Present normal affect and normal mood Skin Skin exam: Present warm, dry, intact and normal color Lymphatic Lymphatic Findings: no adenopathy Medical Decision Making Medical Records Medical records reviewed: No I reviewed the patient's medical records. Maxwell Inquiry Pt receiving controlled substance: No Lab Data Result diagrams: 08/08/22 19:45 08/08/22 19:45
--- NOTE | 2022-08-08 19:30 | ECG_ITS ---
APPROVED REPORT Exam: Resting ECG HR:75 bpm ECG Measurements Heart Rate 75 AXES ND 144 P 68 QRSd 104 QRS -11 QT 378 T 47 QTc 407 Conclusion SINUS RHYTHM NORMAL ECG UNCONFIRMED REPORT Electronically signed by : Jim Titus MD 08/09/2022 17:34:32
[2022-08-08 19:43] VITALS: BP 140/84; PULSE 71; RESP 20; TEMP 37; O2SAT 99; BMI 26.4
--- NOTE | 2022-08-08 20:30 | XR_ITS ---
PROCEDURE INFORMATION: Exam: XR Chest Exam date and time: 08/08/2022 9:46 PM Age: 71 years old Clinical indication: Sternal or substernal pain; Additional info: Chest pain TECHNIQUE: Imaging protocol: Radiologic exam of the chest. Views: 2 views. COMPARISON: CR Chest 08/29/2018 11:10 AM FINDINGS: Lungs: Well aerated with no evidence of consolidations, interstitial patterns or pulmonary nodules. Pleural spaces: No evidence of effusions or pneumothorax. Heart/Mediastinum: The cardiomediastinal silhouette is normal in size and configuration. There is no evidence of cardiomegaly. Diaphragm: Focal eventration of the right hemidiaphragm. Bones/joints: Intact. IMPRESSION: No radiographic evidence of an acute pulmonary process.
--- NOTE | 2022-08-08 20:33 | CT_ITS ---
PROCEDURE INFORMATION: Exam: CT Abdomen And Pelvis With Contrast Exam date and time: 08/08/2022 10:01 PM Age: 71 years old Clinical indication: Bloating; Abdominal pain; Generalized; Prior surgery; Surgery date: 6+ months; Surgery type: Inguinal hernia repair x2; Additional info: Upper abd pain w/ gerd nausea TECHNIQUE: Imaging protocol: Computed tomography of the abdomen and pelvis with contrast. Radiation optimization: All CT scans at this facility use at least one of these dose optimization techniques: automated exposure control; mA and/or kV adjustment per patient size (includes targeted exams where dose is matched to clinical indication); or iterative reconstruction. Contrast material: ISOVUE; Contrast volume: 75 ml; Contrast route: IV; REPORTING DATA: Count of CT and Cardiac NM exams in prior 12 months: This patient has received 0 known CTs and 0 known cardiac nuclear medicine studies in the 12 months prior to the current study. COMPARISON: CR XR HIP RT 2-3V W/PELVIS 10/15/2021 3:18 PM FINDINGS: Lungs: Lung bases are free of consolidation effusions pneumothorax or pulmonary nodules. Liver: The liver is of normal size with no evidence of intrahepatic biliary dilatation . Multiple water density lesions compatible with cysts scattered throughout the liver ranging from subcentimeter in size to 4.4 cm. Gallbladder and bile ducts: There is no evidence of cholelithiasis gallbladder wall thickening or pericholecystic fluid. No ductal dilation identified. Pancreas: No focal lesions, inflammatory changes or ductal dilatation. Spleen: Intact with no focal lesions. No splenomegaly. Adrenal glands: Normal. No mass. Kidneys and ureters: No hydronephrosis or nephrolithiasis. Stomach and bowel: Stomach and proximal small bowel loops are not distended and otherwise unremarkable. There is mild diffuse dilatation of the mid and distal small bowel loops containing liquid stool and associated with mild wall thickening and enhancement . Air and stool scattered throughout nondilated large bowel loops. Mild colonic diverticulosis without acute inflammatory changes. Air-fluid level identified on the rectum compatible with liquid stool. Appendix: No evidence of appendicitis. Intraperitoneal space: Unremarkable. No free air. No significant fluid collection. Vasculature: Unremarkable. No abdominal aortic aneurysm. Lymph nodes: Unremarkable. No enlarged lymph nodes. Urinary bladder: Unremarkable as visualized. Reproductive: Unremarkable as visualized. Bones/joints: Unremarkable. No acute fracture. Soft tissues: Unremarkable. IMPRESSION: 1. Mild diffuse dilatation of the mid and distal small bowel loops containing liquid stool , associated with mild wall thickening and enhancement suggestive of enteritis. 2. Mild colonic diverticulosis. 3. Liver cysts as described above.
[2022-08-08 20:44] LABS: Amylase 86 U/L (30-110)
[2022-08-08 20:45] LABS: Alanine Aminotransferase 29 U/L (12-78); Albumin Level 4.5 g/dl (3.5-5.0); Alkaline Phosphatase 103 U/L (38-126); Anion Gap 13.9 mEq/L (5-15); Aspartate Amino Transferase 32 U/L (17-59); Bilirubin,Indirect 0.9 mg/dL (0.0-0.9); Bilirubin,Total 0.9 mg/dl (0.2-1.3); Blood Urea Nitrogen 9 mg/dl (9-20); Calcium 9.4 mg/dl (8.4-10.2); Carbon Dioxide 26 mmol/L (22.0-30.0); Chloride 101 mmol/L (98-107); Creatinine Clearance Estimated 86 mL/min (50-200); Estimated Glomerular Filt Rate 111 ml/min (>60); GFR (African American) 135 ML/MIN (>60); Glucose 141 mg/dl (74-100); Lipase 81 U/L (23-300); Magnesium 2.4 mg/dl (1.6-2.3); Potassium 3.9 mmoL/L (3.5-5.1); Sodium 137 mmol/L (136-145); Total Protein,Serum 7.5 g/dl (6.3-8.2)
[2022-08-08 20:49] LABS: Basophils % 0.2 % (0.1-2.0); Eosinophils # 0.1 K/mm3 (0.0-0.4); Eosinophils % 0.8 % (0.1-12.0); Hematocrit 49.4 % (42.0-52.0); Hemoglobin 16.1 g/dL (14.1-18.0); Lymphocytes # 1.5 K/mm3 (0.7-4.5); Lymphocytes % 15.3 % (10-50); Mean Corpuscular HGB Conc 32.5 g/dL (31.8-35.4); Mean Corpuscular Hemoglobin 30.8 pg (27.0-31.2); Mean Corpuscular Volume 94.7 fl (80-94); Mean Platelet Volume 10.6 fl (7.4-10.4); Monocytes # 0.4 K/mm3 (0.1-1.0); Monocytes % 4.5 % (1.7-9.3); Neutrophils # 7.6 K/mm3 (1.8-7.8); Neutrophils % 79.3 % (37.0-80.0); Platelet Count 200 K/mm3 (142-424); Red Blood Count 5.22 M/mm3 (4.60-6.20); Red Cell Distribution Width 13.9 % (11.5-17.5); White Blood Count 9.6 K/mm3 (4.8-10.8)
[2022-08-08 20:50] LABS: C-Reactive Protein 5.5 mg/L (0-4)
[2022-08-08 21:00] LABS: Troponin I < 0.01 ng/ml (0.00-0.034)
[2022-08-08 21:04] LABS: Procalcitonin 0.061 ng/mL (0.0-2.0)
[2022-08-08 21:18] LABS: Erythrocyte Sedimentation Rate 10 mm/hr (0-20)
[2022-08-08 23:16] VITALS: BP 134/74; PULSE 76; RESP 18; TEMP 37; O2SAT 99
--- NOTE | 2022-08-09 00:22 | HMH.EDABDPAI ---
Discharge Plan Disposition Patient Disposition: Home, Self-Care Prescriptions Prescriptions: New ondansetron HCl 4 mg Tablet 4 mg PO Q8H PRN (Reason: Nausea) Qty: 20 0RF Referrals Follow up/Referrals: Ethan Kendrick MD [Primary Care Provider] - See instructions Clinical Impressions Clinical Impression: Enteritis, Gastroesophageal reflux disease Instructions Patient Instructions: DI for Enteritis Discharge ED Provider: Fabricio (ED),Anmol Summers Abdominal Pain HPI General Chief Complaint: Abdominal Pain Stated Complaint: Diarrhea possible Acid Reflex Time Seen by Provider: 08/08/22 18:54 Mode of Arrival: Ambulatory Source of Information: Patient, Spouse and Medical Record Limitations: No Limitations Description of Symptoms (Recalled from ER Triage Doc. by RN): Pt originally seen in [facility] for severe acid reflux, diarrhea, nausea and upper abdomen discomfort described as tightness . States he is having intermittent dizziness and weakness. History of Present Illness HPI narrative: has upper abd pain with gerd sx with watery nonbldy diarrhea and feels bloated - vomited x 1 - no fever or known exposure complaint: abdominal pain Onset (ago): hour(s) Consistency: intermittent Location: epigastric Severity: moderate Quality: fullness Associated symptoms: diarrhea Related Data Previous Rx's Medication Instructions Recorded ondansetron HCl 4 mg tablet 4 mg PO Q8H PRN Nausea #20 tabs 08/09/22 Allergies Allergy/AdvReac Type Severity Reaction Status Date / Time No Known Allergies Allergy Verified 12/22/21 10:54 [facility] Disclaimer: The information contained in this section may have been updated after the patient was seen, as this information can be updated by other users. Medical History Hypertension Surgical History History of hernia surgery History of tonsillectomy Family History Father Diabetes mother Coronary artery disease father had heart attack Social History Smoking Status: Never smoker alcohol intake: never current occupational status: retired Travel in the last 8 weeks: None ROS Obtained: Yes All systems reviewed & no additional complaints except as documented Physical Exam General General appearance: alert Head Head exam: normocephalic Eye Eye exam: Present PERRL and EOMI; Absent scleral icterus ENT ENT exam: Present mucous membranes moist Neck Neck exam: Present trachea midline Respiratory Respiratory exam: Present normal lung sounds bilaterally; Absent respiratory distress Cardiovascular Cardiovascular exam: Present regular rate, systolic murmur and +S4 Abdominal Exam Abdominal exam: Present soft, tenderness and hyperactive bowel sounds; Absent guarding, rebound or rigidity Abdominal tenderness: Present epigastrium and moderate Extremities Exam Extremities exam: Present full ROM Neurological Exam Neurological exam: Present alert, oriented X3 and CN II-XII intact; Absent motor sensory deficit Psychiatric Psychiatric exam: Present normal affect Skin Skin exam: Absent rash Medical Decision Making Medical Records Medical records reviewed: Yes I reviewed the patient's medical records. Maxwell Inquiry Pt receiving controlled substance: No Vital Signs: 08/08/22 18:44 08/08/22 19:43 08/08/22 23:16 Temperature 98.6 F 98.6 F 98.6 F Temperature Source Oral Oral Oral Pulse Rate 76 Pulse Rate [Left Radial] 67 71 Pulse Rate [Right] 71 Respiratory Rate 18 20 18 Blood Pressure 134/74 Blood Pressure [Left Arm] 142/84 H 140/84 Blood Pressure Mean [Left Arm] 103 102 Blood Pressure Source [Left Arm] Automatic Cuff Blood Pressure Position [Left Arm] Sitting 02 Sat by Pulse Oximetry 95 99 Oxygen Delivery Method Room Air
== END 2022-08-08 23:16 | disposition home or self-care (01) ==
LOC: UTC 18:50 → ER 19:24
PROVIDERS: Emergency Provider Emergency Medicine; PCP Family Medicine
DX: K52.9 Noninfective gastroenteritis and colitis, unspecified (principal); R10.10 Upper abdominal pain, unspecified; R42 Dizziness and giddiness; R53.1 Weakness; I10 Essential (primary) hypertension
CPT/HCPCS: 71046; 74177; 80048; 80076; 82150; 83690; 83735; 83880; 84145; 84484; 85025; 85651; 86140; 93005; 96361; 96374; 96375; 99285; J2405; Q9967

== ENCOUNTER 2022-09-11 17:00 | Outpatient (RCR) | payer MEDICARE, SELFPAY ==
--- NOTE | 2022-08-14 16:24 | HMH.PTOPEV ---
PT Outpatient Evaluation Rehab PT Outpatient Evaluation Start: 08/14/22 13:56 Freq: Status: Active Protocol: Document 08/14/22 13:56 GUSTAVO (Rec: 08/14/22 16:24 GUSTAVO [id number]) E-signed By Debby Ngo, PT Outpatient Therapy Subjective History Subjective History Pt is a 71 y/o male who reports onset of R>L lateral hip pain in December of last year. 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 Pt reports since then he has had right lateral hip pain that often radiates to the R posterior buttocks region. Pt reports intermittent L lateral hip pain with history of a torn meniscus of the L knee found via imaging 2 years ago. Pt also reports bilateral anterior knee pain and constant medial knee numbness. Pt states he wears bilateral knee sleeves with activity due to added stability. Pt denies central low back pain just occasional stiffness. Pt reports intermittent paresthesia of the medial knee , lateral calf, and into the feet described as numbness, burning and hot sensation. Pt reports both legs feel weak and he started using a rollator walker since the fall in December for safety concerns. 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 Left paracentral protrusion at L4- L5 with surrounding epidural fibrosis. Pt reports he has talked to a neurosurgeon but would
--- NOTE | 2022-09-11 18:06 | HMH.RHREAS ---
Rehab Reassessment Rehab OP Re-assessment Start: 08/14/22 13:56 Freq: Status: Active Protocol: Document 09/11/22 17:38 ALINESANDY (Rec: 09/11/22 18:06 GUSTAVO [id number]) E-signed By Debby Ngo PT Rehab Re-assessment Subjective Subjective Pt reports he feels 60% improved since starting PT. Pt reports his balance feels improved overall but he still feels that he needs to use a SC for support. Pt reports he has been trying to peform household ambulation without his cane but uses it for all community ambulation. Pt reports he fell a couple days ago while leaning on an unstable object while bending forward to pick something up from the ground, denies serious injuries from the fall . Pt reports abolished right lateral hip pain since starting PT. Pt reports intermittent right posterior hip pain with walking 5-10 minutes rated 5/10 at worst. Objective Objective Notes Lumbar AROM: flex 70, ext 10, LLF 20, RLF 15 LE MMT: hip flex 5/5, hip abd/ add 4+/5, knee flex 4+/5 Gait: step through pattern with SC with proper sequencing Assessment Progress Assessment Progressing as Expected Assessment Notes Pt has attended 7 PT visits consisting of aerobic exercise , LE stretching/strengthening, lumbar mobility, balance/ proprioception and gait training with good tolerance. Pt demonstrated improved lumbar AROM, LE strength and gait this date compared to initial evaluation. Pt continues to report right hip pain with prolonged walking and balance deficits requiring a SC for long distance ambulation with verbalized fear of falling again. Pt woul
== END 2022-09-11 17:05 | disposition home or self-care (01) ==
LOC: PT 17:00
PROVIDERS: PCP Family Medicine; Visit Provider Nurse Practitioner Family
DX: M54.50 Low back pain, unspecified (principal); M79.604 Pain in right leg; M79.605 Pain in left leg
CPT/HCPCS: 97110; 97112; 97116; 97140; 97163; 97164; 97530

== ENCOUNTER 2023-10-26 13:45 | Outpatient (CLI) | payer MEDICARE, SELFPAY ==
[2023-10-26 18:17] LABS: Basophils % 0.4 % (0.1-2.0); Eosinophils # 0.1 K/mm3 (0.0-0.4); Eosinophils % 1.3 % (0.1-12.0); Hematocrit 46.8 % (42.0-52.0); Hemoglobin 14.8 g/dL (14.1-18.0); Lymphocytes # 1.4 K/mm3 (0.7-4.5); Lymphocytes % 24.1 % (10-50); Mean Corpuscular HGB Conc 31.6 g/dL (31.8-35.4); Mean Corpuscular Hemoglobin 30.8 pg (27.0-31.2); Mean Corpuscular Volume 97.5 fl (80-94); Mean Platelet Volume 10.7 fl (7.4-10.4); Monocytes # 0.3 K/mm3 (0.1-1.0); Monocytes % 4.9 % (1.7-9.3); Neutrophils % 69.4 % (37.0-80.0); Platelet Count 181 K/mm3 (142-424); Red Cell Distribution Width 14.8 % (11.5-17.5); White Blood Count 5.7 K/mm3 (4.8-10.8)
[2023-10-26 18:26] LABS: Alanine Aminotransferase 27 U/L (12-78); Albumin/Globulin Ratio 1.4 (1.1-1.8); Alkaline Phosphatase 79 U/L (38-126); Anion Gap 10.1 mEq/L (5-15); Aspartate Amino Transferase 26 U/L (17-59); Bilirubin,Total 0.7 mg/dl (0.2-1.3); Blood Urea Nitrogen 11 mg/dl (9-20); Calcium 9.4 mg/dl (8.4-10.2); Carbon Dioxide 30 mmol/L (22.0-30.0); Chloride 106 mmol/L (98-107); Chol/HDL Ratio 3.6 (1-3.5); Cholesterol 170 mg/dl (140-200); Estimated Glomerular Filt Rate 83 ml/min (>60); GFR (African American) 100 ML/MIN (>60); Globulin 2.8 g/dL (1.3-3.2); Glucose 122 mg/dl (74-100); HDL Cholesterol 47 mg/dl (40-60); Potassium 4.1 mmoL/L (3.5-5.1); Sodium 142 mmol/L (136-145); Total Protein,Serum 6.8 g/dl (6.3-8.2); Triglycerides 155 mg/dl (30-150); VLDL Cholesterol 31 mg/dL (0-40)
[2023-10-26 18:57] LABS: Prostate Specific Ag Screen 1.6 ng/ml (0.0-4.0)
== END 2023-10-26 23:59 | disposition home or self-care (01) ==
LOC: LAB.DROPOF 10-27 16:12
PROVIDERS: PCP Family Medicine; Visit Provider Family Medicine
DX: K52.9 Noninfective gastroenteritis and colitis, unspecified (principal); I10 Essential (primary) hypertension; Z12.5 Encounter for screening for malignant neoplasm of prostate
CPT/HCPCS: 80053; 80061; 85025; G0103

== ENCOUNTER 2023-10-29 13:59 | Outpatient (CLI) | payer MEDICARE, SELFPAY ==
[2023-10-29 14:54] LABS: Hemoglobin A1C 6.2 % (4.0-6.0)
== END 2023-10-29 23:59 | disposition home or self-care (01) ==
LOC: LAB 14:00
PROVIDERS: PCP Family Medicine; Visit Provider Family Medicine
DX: R73.9 Hyperglycemia, unspecified (principal)
CPT/HCPCS: 36415; 83036

== ENCOUNTER 2023-12-31 12:11 | Day surgery (SDC) | payer MEDICARE, SELFPAY ==
[2023-12-25 15:33] VITALS: BMI 24.6
[2023-12-31 12:24] VITALS: BP 160/83; PULSE 83; RESP 17; TEMP 36.8; O2SAT 99
[2023-12-31] MEDS: LACTATED RINGERS 1000ML 1,000 ML 25 ML IV (12:34)
[2023-12-31 12:52] VITALS: O2SAT 99
--- NOTE | 2023-12-31 13:00 | EXP.HP ---
History of Present Illness *Admission Date: 12/31/23 *Reason for visit:: Screening/surveillance *History of present illness: Mr. Aleman is a 73-year-old gentleman who is here for screening/surveillance colonoscopy. His last colonoscopy was 7 or 8 years ago. He does state that the time before his last colonoscopy he had a colon polyp. The examination is deemed medically necessary for colonoscopy. The patient has been seen, interviewed and examined prior to the procedure by both myself and the anesthesia provider. [facility] Disclaimer: The information contained in this section may have been updated after the patient was seen, as this information can be updated by other users. Medical History (Updated 12/31/23 @ 13:01 by Chandan Bang II, MD) Cervical disc disease Benign prostatic hyperplasia Hyperlipidemia Colon cancer screening Hypertension Surgical History History of colonoscopy with polypectomy History of tonsillectomy History of hernia surgery Family History Father Diabetes mother Coronary artery disease father had heart attack Social History Smoking Status: Never smoker alcohol intake: never current occupational status: retired Travel in the last 8 weeks: None household members: spouse housing: house marital status: number of children: 3 Other Medical History Have you received the Flu Vaccine for this season: No Have you received the Pneumonia Vaccine: No Review of Systems Review of Systems Review of systems (narrative): Negative *Cardiovascular Comments: Negative *Gastrointestinal Comments: Negative *Genitourinary Comments: Negative *Musculoskeletal Comments: Negative *Neurologic Comments: Negative Meds Home Medications and Allergies Home Medications ?Medication ?Instructions ?Recorded ?Confirmed ?Type No Known Home Medications 12/25/23 12/31/23 History New Prescriptions to Start Prescriptions: Allergies Allergy/AdvReac Type Severity Reaction Status Date / Time No Known Allergies Allergy Verified 12/31/23 12:22 Exam Data for Last 24 hours Vital signs and Labs for Last 24 Hours: Temp Pulse Resp BP Pulse Ox O2 Del Method 98.3 F 83 17 160/83 H 99 Room Air 12/31/23 12:24 12/31/23 12:24 12/31/23 12:24 12/31/23 12:24 12/31/23 12:24 12/31/23 12:52 *Routine HEENT Exam Head: Present normocephalic Eye: Present EOMI and PERRL ENT: Present mucous membranes moist *Routine Neck Exam Neck: Present supple *Routine Respiratory Exam Respiratory: Present CTA bilaterally *Routine Cardiovascular Exam Cardiovascular: Present RRR *Routine Abdominal Exam Abdominal: Present soft and normoactive bowel sounds; Absent tenderness *Routine Rectal Exam Rectal:: deferred *Routine Genitalia Exam Genitalia:: deferred *Routine Extremities Exam Extremities: Absent cyanosis, clubbing or edema *Routine Skin Exam Skin: Present warm; Absent rash *Routine Neurological Exam Neurological: Present alert and oriented X3 Assessment and Plan *Assessment and plan (1) Screening for colon cancer: Status: Acute Category: Medical Code(s): Z12.11 - Encounter for screening for malignant neoplasm of colon (2) Personal history of colon polyps, unspecified: Status: Acute Category: Medical Code(s): Z86.0100 - Personal history of colon polyps, unspecified Plan A/P: 1. Screening/surveillance colonoscopy for colon cancer is the preprocedural diagnosis. The patient will be anesthetized/sedated using MAC sedation. The patient has been seen and examined. Cardiac and lung assessment prior to the examination is stable. Proceed with planned colonoscopy
--- NOTE | 2023-12-31 13:02 | HMH.PROCNOTE ---
[facility] Procedure Note Date: 12/31/23 Time: 13:21 Procedure Note:: Colonoscopy Procedure Report: Colonoscopy with cold snare polypectomy Endoscopist: Chandan Bang II, MD Referring physician: Jim Gleason MD Date of Procedure: December 31, 2023 Equipment: Olympus 190 variable stiffness pediatric colonoscope Sedation: MAC sedation Indication: Mr. Aleman is a 73-year-old gentleman who is here for follow-up screening/surveillance colonoscopy. He states that his last colonoscopy was 7 or 8 years ago. His colonoscopy prior to that did identify a colon polyp. He reports no abdominal pain, weight loss, change in his bowel habits or rectal bleeding. He does have occasional spotting of blood from internal hemorrhoids. He reports no family history of colon cancer. Procedure: Prior to the procedure, a history and physical exam was performed, and patient's medications and allergies were reviewed. The risks, benefits and alternatives of the sedation and procedure were discussed with the patient. All questions were answered and informed consent was obtained. The patient was brought to the procedure room. Patient identification and proposed procedure were verified by the physician and the nurse. The patient was placed in a left lateral decubitus position and the scope was passed under direct vision. Throughout the procedure, the patient's blood pressure, pulse, and oxygen saturations were monitored continuously. The colonoscopy was accomplished without difficulty. The patient tolerated the procedure well. Findings: On digital rectal examination there was normal rectal tone. There were no external hemorrhoids but small external tag. The prostate was 2+, smooth, soft, symmetric without nodules. The colonoscope was introduced through the anal canal to the rectum and advanced to the cecum. The ileocecal valve and appendiceal orifice were identified. The scope was advanced a short distance into the ileum which appeared grossly normal. The scope was then withdrawn into the colon. The cecum, ascending and transverse colon and mucosa were grossly normal. There were 3 polyps (descending x 1 (8 mm) and rectum x 2 (4 and 5 mm)). These were via cold snare polypectomy. There were scattered diverticuli throughout the descending and sigmoid colon (LEFT colon). The rectum itself was normal. Upon retroflexion within the rectum there were grade 2 internal hemorrhoids. The preparation was excellent throughout with Wright Preparation Score of 9. The cecal time was 12 minutes. Impression: 1. Colonic polyps x 3 (ranging in size from 4 to 8 mm) 2. Left-sided diverticulosis 3. Grade 2 internal hemorrhoids Plan: I will follow-up the polyp histology and recommend repeat surveillance colonoscopy again in 5 years if the polyps are adenomatous. I would encourage bulking psyllium fiber supplementation on a maintenance basis.
[2023-12-31 13:35] VITALS: BP 141/74; PULSE 76; RESP 18; TEMP 36.3; O2SAT 94
[2023-12-31 13:45] VITALS: BP 136/73; PULSE 66; RESP 18; O2SAT 100
[2023-12-31 13:55] VITALS: BP 148/78; PULSE 73; RESP 18; O2SAT 99
== END 2023-12-31 13:55 | disposition home or self-care (01) ==
PROVIDERS: PCP Family Medicine; Visit Provider Internal Medicine Gastroenterology
PROC: 0DJD8ZZ Inspection of Lower Intestinal Tract, Via Natural or Artificial Opening Endoscopic (ICD-10-PCS; CPT 45378; principal; 2023-12-31 14:00)
DX: Z12.11 Encounter for screening for malignant neoplasm of colon (principal); Z86.0100 Personal history of colon polyps, unspecified; D12.4 Benign neoplasm of descending colon; K62.1 Rectal polyp; K57.30 Diverticulosis of large intestine without perforation or abscess without bleeding; K64.1 Second degree hemorrhoids
CPT/HCPCS: 45385; 88305; J7120

== ENCOUNTER 2024-09-02 12:54 | Emergency (ER) | payer MEDICARE, SELFPAY ==
[2024-09-02] VITALS (10 sets, daily range): BP systolic 136–174; BP diastolic 77–91; PULSE 55–68; RESP 12–18; TEMP 36.9–37.1; O2SAT 98–100; BMI 24.6
--- NOTE | 2024-09-02 12:55 | ECG_ITS ---
APPROVED REPORT Exam: Resting ECG HR:62 bpm ECG Measurements Heart Rate 62 AXES SC 143 P 67 QRSd 96 QRS 8 QT 399 T 57 QTc 405 Conclusion SINUS RHYTHM NORMAL ECG UNCONFIRMED REPORT Electronically signed by : MICHELLE REDDING, 09/03/2024 06:31:53
--- OUTSIDE RECORDS SUMMARY | 2024-09-02 13:02 | XMS_ITS | Clinical Summary ---
Author Organization Healthcare Address [address] [place] [address] Care Team Providers Care Supervisor Bottle House Cleaners Name Role Phone Chandler Sears MD Unavailable [phone] Allergies No known active allergies Medications atorvastatin (Lipitor) 10 MG tablet Take 1 tablet by mouth every night. 1 Active ibuprofen 200 MG tablet Take 200 mg by mouth every 6 (six) hours if needed for mild pain. Active gabapentin (Neurontin) 100 MG capsuleIndicati ons:Gait abnormality,Her niated nucleus pulposus, L3-4 right,Weakness of left lower extremity 1 po at bedtime for one week, then 2 po at bedtime for one week, then 3 po at bedtime thereafter 90 capsule 2 2 Active Active Problems Problem Noted Date Diagnosed Date Hyperlipidemia, unspecified 08/23/2020 Acute pain of left knee 08/23/2020 Gait abnormality 08/23/2020 BPH (benign prostatic hyperplasia) 05/07/2020 Resolved Problems Problem Noted Date Diagnosed Date Resolved Date Difficulty with speech 07/02/202008/23 Urine abnormality 05/07/2020 08/23/2020 Low back pain with sciatica 11/10/2019 08/23/2020 Neuropathic pain 11/10/2019 08/23/2020 Family History Medical History Relation Name Comments Prostate cancer Brother Coronary artery disease Father Coronary artery disease Mother Diabetes type II Mother Relation Name Status Comments Brother Father Mother Social History Tobacco Use Types Packs/Day Years Used Date Smoking Tobacco: Never Smokeless Tobacco: Never Tobacco Cessation:Counseling Given: Not Answered Alcohol Use Standard Drinks/Week Comments Not Currently 0 (1 standard drink = 0.6 oz pure alcohol) Alcoholic Drinks/day: Current non-drinker of alcohol Sex and Gender Information Value Date Recorded Sex Assigned at Not on file Legal Sex Male 7:20 PM EDT Gender Identity Not on file Sexual Orientation Not on file Last Filed Vital Signs Vital Sign Reading Time Taken Comments Blood Pressure 129/86 04/11/2022 10:08 AM EST Pulse 70 04/11/2022 10:08 AM EST Temperature 36.6 C (97.8 F) 08/23/2020 11:19 AM EDT Respiratory Rate 18 04/11/2022 10:08 AM EST Oxygen Saturation 97% 04/11/2022 10:08 AM EST Inhaled Oxygen Concentration - - Weight 87.2 kg (192 lb 3.2 oz) 04/11/2022 10:08 AM EST Height 185.4 cm (6' 1 ) 04/11/2022 10:08 AM EST Body Mass Index 25.36 04/11/2022 10:08 AM EST Plan of Treatment Health Maintenance Due Date Last Done Comments [facility]-Hepatitis C Screening 1950 [facility]Medicare Annual Wellness (AWV) 1950 [facility]-/Child/Adol SDOH Screenings 1950 [facility]- SDOH Screenings 09/05/1969 [facility]-Adult SDOH Screenings 09/05/1969 [facility]-DTaP,Tdap,and Td Vaccine s (1 - Tdap) 09/05/1970 CT Colonography 09/05/1996 Colonoscopy 09/05/1996 FIT-DNA 09/05/1996 FIT 09/05/1996 FOBT 09/05/1996 Sigmoidoscopy 09/05/1996 [facility]-Colorectal Cancer Screening 09/05/1996 [facility]-Pneumococcal Vaccine: 50 + Years (1 of 1 - PCV) 09/05/2001 [facility]-Zoster Vaccines (1 of 2) 09/05/2001 [facility]-Depression Screening 08/23/2021 08/23/2020 [id number] Vaccine (3 - 2023- season) 2023 09/09/2020, 08/19/2020 [facility]-Influenza Vaccine (Seaso n Ended) 2024 [facility]-RSV Vaccine: 60+ Years o r (1 - 1-dose 75+ series) 09/05/2026 [facility]-Obesity Intervention Completed 04/11/2022 HPV Vaccines Aged Out No longer eligi ble based on patient's age to complete this topic [facility]-HIB Vaccines Aged Out No longer e ligible based on patient's age to complete this topic [facility]-Hepatitis A Vaccines Aged Out No longer eligible based on patient's age to complete this topic [facility]-IPV Vaccines Aged Out No longer e ligible based on patient's age to complete this topic [facility]-Rotavirus Vaccines Aged Out No lo nger eligible based on patient's age to complete this topic Insurance [employer] Care Teams Supervisor Bottle House Cleaners Relationship Specialty Start Date End Date Chandler Sears MD [address] [facility] [address] [place] [address] Surgeon Neurosurgery 02/28/22
--- OUTSIDE RECORDS SUMMARY | 2024-09-02 13:02 | XMS_ITS | Encounter Summary ---
Author Organization Healthcare Address [address] [place] [address] Care Team Providers Care Brush Cutter Name Role Phone Cyndi Coyle MD Primary Care Provider [phone] Suhail Castelalno MD Primary Care Provider Cahndler Sears MD Unavailable [phone] Encounter Details Date Type Department Care Team (Late st Contact Info) Description 08/23/2020 Outside Procedure External Location [address] [place] [address] Cyndi Coyle MD [address] [place] [phone] Social History Tobacco Use Types Packs/Day Years Used Date Smoking Tobacco: Former Smokeless Tobacco: Never Alcohol Use Standard Drinks/Week Comments Not Currently 0 (1 standard drink = 0.6 oz pure alcohol) Alcoholic Drinks/day: Current non-drinker of alcohol Sex and Gender Information Value Date Recorded Sex Assigned at Not on file Legal Sex Male 7:20 PM EDT Gender Identity Not on file Sexual Orientation Not on file COVID-19 Exposure Response Date Recorded In the last month, have you been in contact with someone who was confirmed or suspected to have Coronavirus / COVID-19? No / Unsure 08/23/2020 11:13 AM EDT documented as of this encounter Plan of Treatment Not on file documented as of this encounter Procedures Procedure Name Priority Date/Time Associated Diagnosis Comments XR KNEE LEFT 3 VIEWS 08/23/2020 12:37 PM EDT documented in this encounter Results * XR Knee Left 3 Views (08/23/2020 12:37 PM EDT) Anatomical Region Laterality Modality Lower Extremities, Knee Left Radiogra phic Imaging 08/23/2020 12:3 7 PM EDT Narrative 08/23/2020 2:38 [place] [address] Name: JOSE BROWER Exam Date: 08/23/2020 : 1950 Age 69 Gender: M Physician: CYNDI COYLE Facility: [facility] Facility HSV: Outpatient Exam: KNEE 3V LT Left knee THREE VIEW HISTORY: Pain. FINDINGS: Three views show no evidence of an acute, displaced fracture or dislocation of the visualized bony architecture. There are mild degenerative changes. If warranted consider further evaluation with MRI. IMPRESSION: No acute osseous changes. Dictated By: Herson Gonzales Transcribed By: Herson Gonzales Transcribed On: 08/23/2020 2:26 PM Electronically signed by: Herson Gonzales 08/23/2020 Thank you for referring JOSE BROWER to [facility]. Legally authenticated by POPE HERSON Serrano 2020-08-23 14:26:18 Procedure Note Provider, Generic [place] - 08/23/2020 [place] [address] Name: JOSE BROWER Exam Date: 08/23/2020 : 1950 Age 69 Gender: M Physician: CYNDI COYLE Facility: [facility] Facility HSV: Outpatient Exam: KNEE 3V LT Left knee THREE VIEW HISTORY: Pain. FINDINGS: Three views show no evidence of an acute, displaced fractureor dislocation of the visualized bony architecture. There are milddegenerative changes. If warranted consider further evaluation with MRI. IMPRESSION: No acute osseous changes. Dictated By: Herson Gonzales Transcribed By: Herson Gonzales Transcribed On: 08/23/2020 2:26 PM Electronically signed by: Herson Gonzales 08/23/2020 Thank you for referring JOSE BROWER to [facility]. Legally authenticated by POPE HERSON Serrano 2020-08-23 14:26:18 us Cyndi Coyle MD IMG XR PROCEDURES Final Resu lt documented in this encounter Visit Diagnoses Not on filedocumented in this encounter Additional Health Concerns Assessment Noted Time A fall risk assessment has been complete d for the patient 08/23/2020 11:28 AM EDT documented as of this encounter Care Teams Brush Cutter Relationship Specialty Start Date End Date Cyndi Coyle MD [address] [place] [address] PCP - General 07/23/20 08/28/21 Suhail Castellano MD [address] [facility] [address] [place] [address] PCP - General Family Medicine 08/29/21 10/09/23 Chandler Sears MD [address] [place] [address] Surgeon Neurosurgery 02/28/22 documented as of this encounter
--- OUTSIDE RECORDS SUMMARY | 2024-09-02 13:02 | XMS_ITS | Encounter Summary ---
Author Organization Healthcare Address [address] [place] [address] Care Team Providers Care Refractory Bricklayer Name Role Phone Cyndi Coyle MD Primary Care Provider [phone] Suhail Castellano MD Primary Care Provider Chandler Sears MD Unavailable [phone] Encounter Details Date Type Department Care Team (Late st Contact Info) Description 09/16/2020 Outside Procedure External Location [address] [place] [address] Cyndi Coyle MD [address] [place] [phone] Social History Tobacco Use Types Packs/Day [...] Procedure Name Priority Date/Time Associated Diagnosis Comments MR KNEE LEFT WO IV CONTRAST 09/16/2020 10:36 AM EDT documented in this encounter Results * MR Knee Left wo IV Contrast (09/16/2020 10:36 AM EDT) Anatomical Region Laterality Modality Knee Left Magnetic Resonan ce 09/16/2020 10:3 6 AM EDT Narrative 09/16/2020 1:44 [place] [address] Name: JOSE BROWER Exam Date: 09/16/2020 : 1950 Age 70 Gender: M Physician: CYNDI COYLE Facility: [facility] Facility HSV: Outpatient Exam: MRI KNEE W/O CONT LT FINAL REPORT CLINICAL HISTORY: left knee pain no known trauma or injury no previous MRI FINDINGS: Multiplanar MR imaging of the left knee was performed without contrast. There is a tear of the posterior horn of the medial meniscus. There is a tear of the body and posterior horn of the lateral meniscus. The anterior and posterior cruciate ligaments are intact. The medial collateral ligament and lateral ligamentous complex are intact. The patellar and quadriceps tendons are intact. There is no evidence of fracture. There is mild degenerative change with mild to moderate chondromalacia. Small joint effusion is seen. The musculature is intact. There is a small popliteal cyst. IMPRESSION: Medial and lateral meniscal tears as above. Degenerative change and chondromalacia. Reviewed, Interpreted and Dictated by Dutch Lim III, MD Transcribed by Jimena Gallo Authenticated by Dutch Lim III, MD on 09/16/2020 01:31:23 PMEASTERN Dictated By: Dutch Lim III Transcribed By: Transcribed On: 09/16/2020 1:31 PM Electronically signed by: Dutch Lim III 09/16/2020 Thank you for referring BROWERJOSE to [facility]. Legally authenticated by ANDREINA Celeste III 2020-09-16 13:31:23 Procedure Note Provider, Generic [place] - 09/16/2020 [place] [address] Name: JOSE BROWER Exam Date: 09/16/2020 : 1950 Age 70 Gender: M Physician: CYNDI COYLE Facility: [facility] Facility HSV: Outpatient Exam: MRI KNEE W/O CONT LT FINAL REPORT CLINICAL HISTORY: left knee pain no known trauma or injury no previous MRI FINDINGS: Multiplanar MR imaging of the left knee was performed without contrast. There is a tear of the posterior horn of the medial meniscus. There is a tear of the body and posterior horn of the lateral meniscus. The anterior and posterior cruciate ligaments are intact. The medial collateral ligament and lateral ligamentous complex are intact. The patellar and quadriceps tendons are intact. There is no evidence of fracture. There is mild degenerative change with mild to moderate chondromalacia. Small joint effusion is seen. The musculature is intact. There is a small popliteal cyst. IMPRESSION: Medial and lateral meniscal tears as above. Degenerative change and chondromalacia. Reviewed, Interpreted and Dictated by Dutch Lim III, MD Transcribed by Jimena Gallo Authenticated by Dutch Lim III, MD on 09/16/2020 01:31:23 PMEASTERN Dictated By: Dutch Lim III Transcribed By: Transcribed On: 09/16/2020 1:31 PM Electronically signed by: Dutch Lim III 09/16/2020 Thank you for referring JOSE BROWER to [facility]. Legally authenticated by ANDREINA Celeste III 2020-09-16 13:31:23 us Cyndi Coyle MD IMG MRI PROCEDURES Final Res ult documented in this encounter Visit Diagnoses Not on filedocumented in this encounter Additional Health Concerns Assessment Noted Time A fall risk assessment has been complete d for the patient 08/23/2020 11:28 AM EDT documented as of this encounter Care Teams Refractory Bricklayer Relationship Specialty Start Date End Date Cyndi Coyle MD [address] [place] [phone] PCP - General 07/23/20 08/28/21 Suhail Castellano MD [address] [place] [address] PCP - General Family Medicine 08/29/21 10/09/23 Chandler Sears MD [address] [place] [address] Surgeon Neurosurgery 02/28/22 documented as of this encounter
--- NOTE | 2024-09-02 13:15 | XR_ITS ---
FINAL REPORT TECHNIQUE: Single view chest CLINICAL HISTORY: L sided chest pain and arm heaviness COMPARISON: 08/29/2018 FINDINGS: A single view of the chest was obtained. The heart and mediastinum are within normal limits. The lungs are clear. There is no pneumothorax. IMPRESSION: No acute cardiopulmonary process. Reviewed, Interpreted and Dictated by Julia Penny MD Transcribed by Fabiola Pritchard Authenticated and . [facility]
[2024-09-02 13:22] LABS: Basophils % 0.2 % (0.1-2.0); Eosinophils # 0.1 Kmm3 (0.0-0.4); Eosinophils % 1.7 % (0.1-12.0); Hematocrit 40.7 % (42.0-52.0); Hemoglobin 13.7 g/dL (14.1-18.0); Immature Granulocytes # 0.01 10^3uL; Immature Granulocytes % 0.2 %; Lymphocytes # 1.8 K/mm3 (0.7-4.5); Lymphocytes % 33.6 % (10-50); Mean Corpuscular HGB Conc 33.7 g/dL (31.8-35.4); Mean Corpuscular Hemoglobin 31.5 pg (27.0-31.2); Mean Corpuscular Volume 93.6 fl (80-94); Mean Platelet Volume 11.4 fl (7.4-10.4); Monocytes # 0.4 K/mm3 (0.1-1.0); Monocytes % 7.6 % (1.7-9.3); Neutrophils % 56.7 % (37.0-80.0); Nucleated Red Blood Cells # 0 10^3/uL; Nucleated Red Blood Cells % 0 %; Platelet Count 150 K/mm3 (142-424); Red Blood Count 4.35 M/mm3 (4.60-6.20); Red Cell Distribution Width 13.2 % (11.5-17.5); Red Cell Distribution Width-SD 45.1 fL; White Blood Count 5.2 K/mm3 (4.8-10.8)
[2024-09-02 13:28] LABS: Albumin Level 4.3 g/dl (3.5-5.0); Chloride 102 mmol/L (98-107)
[2024-09-02 13:29] LABS: Activated Partial Thrombo Time 27.1 seconds (22.8-30.6); Sodium 139 mmol/L (136-145)
[2024-09-02 13:31] LABS: Alanine Aminotransferase 22 U/L (12-78); Aspartate Amino Transferase 29 U/L (17-59); Blood Urea Nitrogen 12 mg/dl (9-20); Carbon Dioxide 29 mmol/L (22.0-30.0); Creatinine Clearance Estimated 80 mL/min (50-200); Estimated Glomerular Filt Rate 95 ml/min (>60); GFR (African American) 115 ML/MIN (>60)
[2024-09-02 13:32] LABS: Albumin/Globulin Ratio 1.6 (1.1-1.8); Alkaline Phosphatase 81 U/L (38-126); Bilirubin,Total 0.5 mg/dl (0.2-1.3); Calcium 9.2 mg/dl (8.4-10.2); Globulin 2.7 g/dL (1.3-3.2); Glucose 113 mg/dl (74-100); Lipase 350 U/L (23-300); Magnesium 2.2 mg/dl (1.6-2.3)
--- NOTE | 2024-09-02 13:36 | ED_ITS ---
Discharge Plan Disposition Patient Disposition: Home, Self-Care Prescriptions Prescriptions: No Action ibuprofen 200 mg tablet 200 mg PO Q6H PRN Referrals Follow up/Referrals: Jamar Fernandez MD [Staff Physician, Cardiology] - See instructions Jim Gleason MD [Primary Care Provider, Family Practice] - See instructions Activity Restrictions/Add. Instructions Additional Instructions/Restrictions: At this time it was felt you are safe to be discharged home. If new or worsening symptoms please do not hesitate to return the emergency department. Please call and schedule an appointment and follow-up with cardiology as soon as you are able. Clinical Impressions Clinical Impression: Chest pain Print Language Print Language: Lao Discharge ED Provider: Vaughn Murillo HPI <Vaughn Murillo MD - Last Filed: 09/02/24 15:09> General Chief Complaint: Chest Pain Stated Complaint: Chest Pain Time Seen by Provider: 09/02/24 13:08 Mode of Arrival: Ambulatory Source of Information: Patient Description of Symptoms (Recalled from ER Triage Doc. by RN): PT presents to the ED for evaluation of left sided chest pain. PT stated he started feeling weird in the left side of chest. Denies SOA, blood thinners, N/V, dizziness. PT took 4 baby aspirins at home one hour ago. PT stated he took his BP and reported 160/x. PT has hx of HTN but denies taking daily meds rather managing with life style changes. Ambulated per self in ED. A&Ox4. History of Present Illness HPI narrative: Please note that above description of symptoms, in this electronic medical record under categorization of recalled from ER triage doctor by RN are reflective of an initial nursing assessment, however, is not reflective of my full history and physical exam that was personally taken and clarified. Consequentially, this preceding description of symptoms, which may include the patient's categorized chief complaint in the EMR, do not reflect my personal clinical impression, and the ultimate description of history of present illness and patient stated complaints should be deferred to this section of the note. Unless stated otherwise or congruent with this section of the note, additional signs, symptoms, or incongruence should be interpreted as inaccurate with my clinical impression. Related Data Home Medications ?Medication ?Instructions ?Recorded ?Confirmed ibuprofen 200 mg tablet 200 mg PO Q6H PRN 04/25/24 0 08/22/24 Allergies Allergy/AdvReac Type Severity Reaction Status Date / Time No Known Allergies Allergy Verified 08/22/24 13:23 [facility] <Vaughn Murillo MD - Last Filed: 09/02/24 15:09> [facility] Disclaimer: The information contained in this section may have been updated after the patient was seen, as this information can be updated by other users. Medical History Prediabetes Cervical disc disease Benign prostatic hyperplasia Hyperlipidemia Colon cancer screening Hypertension Surgical History History of colonoscopy with polypectomy History of tonsillectomy History of hernia surgery Family History Father Diabetes mother Coronary artery disease father had heart attack Social History Smoking Status: Never smoker alcohol intake: never current occupational status: retired Travel in the last 8 weeks?: None household members: spouse housing: house marital status: number of children: 3 Have you lived/traveled outside US in past 30 days?: No Contact w/someone who lives/traveled outside US past 30 days?: No Exposure to someone with infectious disease in past 14 days?: No Do you have a fever (greater than 100.4 F or 38 C)?: No Have you tested positive for COVID-19?: No Exposed to someone with COVID-19 in past 14 days?: No Do you have a sore throat?: No Do you have a cough?: No Do you have any weakness?: No Do you have any diarrhea?: No Are you experiencing any unusual bleeding?: No Do you have any muscle aches/pain?: No Do you have any abdominal pain?: No Are you experiencing loss of taste or smell?: No Other Medical History Have you received the Flu Vaccine for this season: No Have you received the Pneumonia Vaccine: No <Vaughn Murillo MD - Last Filed: 09/02/24 15:09> ROS Obtained: Yes All systems reviewed & no additional complaints except as documented Physical Exam <Vaughn Murillo MD - Last Filed: 09/02/24 15:09> General General appearance: alert and in no apparent distress Neck Neck exam: Present trachea midline Chest Chest inspection: Present normal inspection and symmetric chest wall rise Respiratory Respiratory exam: Present normal lung sounds bilaterally; Absent respiratory distress, wheezes, stridor, accessory muscle use or prolonged expiratory phase Cardiovascular Cardiovascular exam: Present regular rate, normal rhythm and other (Pulses equal and symmetric in upper and lower extremities) Extremities Exam Extremities exam: Absent edema Neurological Exam Neurological exam: Present alert, oriented X3 and CN II-XII intact Skin Skin exam: Present warm and dry; Absent cyanosis, diaphoresis or pallor HEART Score <Vaughn Murillo MD - Last Filed: 09/02/24 15:09> HEART Score HEART Score assessment performed?: Yes History (anamnesis): Moderately suspicious ECG: Normal Age: >65 years Risk factors: 1-2 risk factors Troponin: </= normal limit HEART Score: 4 <Joel Pate MD - Last Filed: 09/02/24 16:55> HEART Score HEART Score: 4 Critical Care <Vaughn Murillo MD - Last Filed: 09/02/24 15:09> Critical Care Time Critical Care Time: No Medical Decision Making <Vaughn Murillo MD - Last Filed: 09/02/24 15:09> Medical Records Medical records reviewed: Yes I reviewed the patient's medical records. Maxwell Inquiry Pt receiving controlled substance: No Maxwell was queried for this patient: No Vital Signs Vital Signs: 09/02/24 12:57 09/02/24 13:03 09/02/24 13:12 Temperature 98.8 F Temperature Source Oral Pulse Rate 62 68 Pulse Rate [Right] 68 Respiratory Rate 18 13 Blood Pressure 174/91 H Blood Pressure [Right Arm] 174/91 H Blood Pressure Mean 118 Blood Pressure Mean [Right Arm] 118 02 Sat by Pulse Oximetry 100 100 Oxygen Delivery Method Room Air 09/02/24 13:30 09/02/24 14:00 09/02/24 15:00 Temperature Temperature Source Pulse Rate 55 L Pulse Rate [Right] Respiratory Rate 13 13 15 Blood Pressure 155/91 H 136/77 137/80 Blood Pressure [Right Arm] Blood Pressure Mean 121 Blood Pressure Mean [Right Arm] 02 Sat by Pulse Oximetry 98 Oxygen Delivery Method Lab Data Labs: Lab Results 09/02/24 13:00: WBC 5.2, RBC 4.35 L, Hgb 13.7 L, Hct 40.7 L, MCV 93.6, MCH 31.5 H, MCHC 33.7, RDW 13.2, Plt Count 150, MPV 11.4 H, Neut % (Auto) 56.7, Lymph % (Auto) 33.6, [place] % (Auto) 7.6, Eos % (Auto) 1.7, Baso % (Auto) 0.2, Neut # (Auto) 3.0, Lymph # (Auto) 1.8, [place] # (Auto) 0.4, Eos # (Auto) 0.1, Baso # (Auto) 0.0, APTT 27.1, Sodium 139, Potassium 4.0, Chloride 102, Carbon Dioxide 29, Anion Gap 12.0, BUN 12, Creatinine 0.80, Estimated Creat Clear 80, Estimated GFR 95, Est GFR ( Amer) 115, Glucose 113 H, Calcium 9.2, Magnesium 2.2, Total Bilirubin 0.5, AST 29, ALT 22, Alkaline Phosphatase 81, Troponin I < 0.01, NT-Pro-B Natriuret Pep 211 H, Total Protein 7.0, Albumin 4.3, Globulin 2.7, Albumin/Globulin Ratio 1.6, Lipase 350 H 09/02/24 15:09: Troponin I < 0.01 09/02/24 : HCV Ab REY w/Rflx PCR Qn Negative, HIV Ag/Ab Combo Qual Negative 09/02/24 13:00 09/02/24 13:00 Response Orders (Tests/Meds): ORDERS Category Date Time Status XR chest portable Stat Exams 09/02/24 13:15 Completed Complete Blood Count Auto Diff Stat Lab 09/02/24 13:00 Completed Comprehensive Metabolic Panel Stat Lab 09/02/24 13:00 Completed HIV Combo Stat Lab 09/02/24 Completed Hepatitis C Ab Qual. W/ RFX Stat Lab 09/02/24 Completed Lipase Stat Lab 09/02/24 13:00 Completed Magnesium Stat Lab 09/02/24 13:00 Completed NT Pro Brain Natriuretic Pep. Stat Lab 09/02/24 13:00 Completed PTT [Activated Partial Thrombo Time] Stat Lab 09/02/24 13:00 Completed Troponin I Q3H Lab 09/02/24 15:09 Completed Troponin I Q3H Lab 09/02/24 19:30 Ordered Troponin I Stat Lab 09/02/24 13:00 Completed MDM Narrative Medical Decision Narrative: 73-year-old male presenting with left-sided chest wall pain. He states he was just sitting on the couch just prior to arrival and had left-sided chest wall pain as well as a general feeling of malaise and feeling unwell. Associated with left upper extremity heaviness. The pain was mild in intensity, did not radiate. No associated shortness of breath, vomiting, diaphoresis, but states that he did feel little clammy in his hands. No lower extremity swelling, medication changes, syncopal episode, and currently asymptomatic. History was obtained via conversation with patient. On arrival, patient hemodynamically stable, alert, [oriented x4, ][appropriate, ]GCS [15], moving all extremities spontaneously, pupils equal and reactive to light. Full physical exam performed and significant for very clinically well-appearing male who is in no acute distress. Speaking in full sentences. Lungs are clear, cardiac exam without murmurs gallops or rubs. Pulses equal and symmetric in upper and lower extremities. No lower extremity edema. Differential includes ACS, RI, stable angina, pneumothorax, musculoskeletal pain, pancreatitis, among others. Patient took 324 mg aspirin prior to arrival. Nothing in the emergency department was administered Patient placed on continuous cardiac monitoring and continuous pulse ox with initial blood pressure 174/91, heart rate 62, saturation 98% on room air. [Independent interpretation of EKG shows] sinus rhythm 62 bpm with IL 143, QRS 96, QTc 405. Normal axis with no acute ischemic change. Workup independently interpreted and significant for nonactionable CBC or chemistry. Patient's troponin negative, BNP 211. Lipase nonactionable at 350. Chest x-ray without acute cardiopulmonary airspace disease. See radiology read for full review of final results. Patient was placed in observation beginning at 130 PM in order to vomiting RI with delta troponins and determine need for admission versus home-going. The patient was provided serial exams, monitoring while awaiting results. Prior to delta troponin, care handed off to oncoming physician. Total observation time [] Service Consultant disclaimer Much of this encounter note is an electronic delinquent tax collector spoken language to printed text. Electronic delinquent tax collector of the spoken language may permit errors. Although I have reviewed the note, some errors may still exist. <Joel Pate MD - Last Filed: 09/02/24 16:55> Vital Signs Vital Signs: 09/02/24 12:57 09/02/24 13:03 09/02/24 13:12 Temperature 98.8 F Temperature Source Oral Pulse Rate 62 68 Pulse Rate [Right] 68 Respiratory Rate 18 13 Blood Pressure 174/91 H Blood Pressure [Right Arm] 174/91 H Blood Pressure Mean 118 Blood Pressure Mean [Right Arm] 118 02 Sat by Pulse Oximetry 100 100 Oxygen Delivery Method Room Air 09/02/24 13:30 09/02/24 14:00 09/02/24 15:00 Temperature Temperature Source Pulse Rate 55 L Pulse Rate [Right] Respiratory Rate 13 13 15 Blood Pressure 155/91 H 136/77 137/80 Blood Pressure [Right Arm] Blood Pressure Mean 121 Blood Pressure Mean [Right Arm] 02 Sat by Pulse Oximetry 98 Oxygen Delivery Method Lab Data Labs: Lab Results 09/02/24 13:00: WBC 5.2, RBC 4.35 L, Hgb 13.7 L, Hct 40.7 L, MCV 93.6, MCH 31.5 H, MCHC 33.7, RDW 13.2, Plt Count 150, MPV 11.4 H, Neut % (Auto) 56.7, Lymph % (Auto) 33.6, [place] % (Auto) 7.6, Eos % (Auto) 1.7, Baso % (Auto) 0.2, Neut # (Auto) 3.0, Lymph # (Auto) 1.8, [place] # (Auto) 0.4, Eos # (Auto) 0.1, Baso # (Auto) 0.0, APTT 27.1, Sodium 139, Potassium 4.0, Chloride 102, Carbon Dioxide 29, Anion Gap 12.0, BUN 12, Creatinine 0.80, Estimated Creat Clear 80, Estimated GFR 95, Est GFR ( Amer) 115, Glucose 113 H, Calcium 9.2, Magnesium 2.2, Total Bilirubin 0.5, AST 29, ALT 22, Alkaline Phosphatase 81, Troponin I < 0.01, NT-Pro-B Natriuret Pep 211 H, Total Protein 7.0, Albumin 4.3, Globulin 2.7, Albumin/Globulin Ratio 1.6, Lipase 350 H 09/02/24 15:09: Troponin I < 0.01 09/02/24 : HCV Ab REY w/Rflx PCR Qn Negative, HIV Ag/Ab Combo Qual Negative Response Orders (Tests/Meds): ORDERS Category Date Time Status XR chest portable Stat Exams 09/02/24 13:15 Completed Complete Blood Count Auto Diff Stat Lab 09/02/24 13:00 Completed Comprehensive Metabolic Panel Stat Lab 09/02/24 13:00 Completed HIV Combo Stat Lab 09/02/24 Completed Hepatitis C Ab Qual. W/ RFX Stat Lab 09/02/24 Completed Lipase Stat Lab 09/02/24 13:00 Completed Magnesium Stat Lab 09/02/24 13:00 Completed NT Pro Brain Natriuretic Pep. Stat Lab 09/02/24 13:00 Completed PTT [Activated Partial Thrombo Time] Stat Lab 09/02/24 13:00 Completed Troponin I Q3H Lab 09/02/24 15:09 Completed Troponin I Q3H Lab 09/02/24 19:30 Ordered Troponin I Stat Lab 09/02/24 13:00 Completed MDM Narrative Medical Decision Narrative: 73-year-old male presenting with left-sided chest wall pain. He states he was just sitting on the couch just prior to arrival and had left-sided chest wall pain as well as a general feeling of malaise and feeling unwell. Associated with left upper extremity heaviness. The pain was mild in intensity, did not radiate. No associated shortness of breath, vomiting, diaphoresis, but states that he did feel little clammy in his hands. No lower extremity swelling, medication changes, syncopal episode, and currently asymptomatic. History was obtained via conversation with patient. On arrival, patient hemodynamically stable, alert, [oriented x4, ][appropriate, ]GCS [15], moving all extremities spontaneously, pupils equal and reactive to light. Full physical exam performed and significant for very clinically well-appearing male who is in no acute distress. Speaking in full sentences. Lungs are clear, cardiac exam without murmurs gallops or rubs. Pulses equal and symmetric in upper and lower extremities. No lower extremity edema. Differential includes ACS, RI, stable angina, pneumothorax, musculoskeletal pain, pancreatitis, among others. Patient took 324 mg aspirin prior to arrival. Nothing in the emergency department was administered Patient placed on continuous cardiac monitoring and continuous pulse ox with initial blood pressure 174/91, heart rate 62, saturation 98% on room air. [Independent interpretation of EKG shows] sinus rhythm 62 bpm with IL 143, QRS 96, QTc 405. Normal axis with no acute ischemic change. Workup independently interpreted and significant for nonactionable CBC or chemistry. Patient's troponin negative, BNP 211. Lipase nonactionable at 350. Chest x-ray without acute cardiopulmonary airspace disease. See radiology read for full review of final results. Patient was placed in observation beginning at 130 PM in order to vomiting RI with delta troponins and determine need for admission versus home-going. The patient was provided serial exams, monitoring while awaiting results. Prior to delta troponin, care handed off to oncoming physician. Joel Pate: Upon assumption of care patient was hemodynamically stable. Serial troponins are nonactionable, upon repeat evaluation patient continues to be well-appearing. Given this patient is appropriate for discharge at this time will follow-up with Dr. Fernandez on an outpatient basis. Total observation time 3.5 hours Service Consultant disclaimer Much of this encounter note is an electronic delinquent tax collector spoken language to printed text. Electronic delinquent tax collector of the spoken language may permit errors. Although I have reviewed the note, some errors may still exist.
[2024-09-02 13:42] LABS: NT Pro Brain Natriuretic Pep. 211 pg/mL (0-125)
[2024-09-02 13:51] LABS: Troponin I < 0.01 ng/ml (0.00-0.034)
[2024-09-02 14:14] LABS: Hepatitis C Ab Qual. W/ RFX NEGATIVE (Negative)
[2024-09-02 14:29] LABS: HIV Combo NEGATIVE (Negative)
[2024-09-02 15:46] LABS: Troponin I < 0.01 ng/ml (0.00-0.034)
--- NOTE | 2024-09-02 16:50 | PC.NURSE ---
called lab r/t 2nd trop, Lab stated they reverified.
--- NOTE | 2024-09-02 16:54 | PC.NURSE ---
DR CORREA AT BEDSIDE TO UPDATE PT AND FAMILY
== END 2024-09-02 17:05 | disposition home or self-care (01) ==
PROVIDERS: Emergency Provider Emergency Medicine; PCP Family Medicine
DX: R07.89 Other chest pain (principal); I10 Essential (primary) hypertension; E78.5 Hyperlipidemia, unspecified
CPT/HCPCS: 71045; 80053; 83690; 83735; 83880; 84484; 85025; 85730; 86803; 87389; 93005; 99285

== ENCOUNTER 2024-10-02 12:44 | Outpatient (CLI) | payer MEDICARE, SELFPAY ==
--- NOTE | 2024-10-02 | CA_ITS ---
APPROVED REPORT Exam: Pharmacologic Technologist: Tashia Jacobsen Ht: 6 ft 0 in Wt: 196 lbs BSA: 2.11 m2 Medical History Medications: Ibuprofen. Stress Test Details Test: Lexiscan Reason for pharmacologic stress test: physical limitation. HR Resting HR: 60 bpm Max Heart Rate (APMHR): 147.378552 bpm Max HR Achieved: 87 bpm Target HR (85% APMHR): 124.575961 bpm % of APMHR: 59.18 Recovery HR: 76 bpm BP Resting BP: 114.0/69.0 mmHg Max BP: 144.0/74.0 mmHg Recovery BP: 144.0/74.0 mmHg ECG Resting ECG: SB Stress ECG Conclusion Symptoms: SOB and abdominal pain with Lexisan infusion. Arrhythmias/Ectopy: None. ST-T Changes: unremarkable with Lexiscan. Electronically signed by : Akua Correa MD 10/02/2024 14:10:40
--- OUTSIDE RECORDS SUMMARY | 2024-10-02 12:47 | XMS_ITS | Encounter Summary ---
Author Organization Healthcare Address [address] [place] [address] Care Team Providers Care Union Contract Representative Name Role Phone Cyndi Coyle MD Primary Care Provider [phone] Suhail Castellano MD Primary Care Provider Chandler Sears MD Unavailable [phone] Encounter Details Date Type Department Care Team (Late st Contact Info) Description 08/23/2020 Outside Procedure External Location [address] [place] [address] Cyndi Coyle MD [address] [place] [phone] Social History Tobacco Use Types Packs/Day [...] PM EDT Narrative 08/23/2020 2:38 [place] [address] Name: JOSE BROWER Exam Date: 08/23/2020 : 1950 Age 69 Gender: M Physician: CYNDI COYLE Facility: [facility] Facility HSV: Outpatient Exam: KNEE 3V LT Left knee THREE VIEW HISTORY: Pain. FINDINGS: Three views show no evidence of an acute, displaced fracture or dislocation of the visualized bony architecture. There are mild degenerative changes. If warranted consider further evaluation with MRI. IMPRESSION: No acute osseous changes. Dictated By: Hreson Gonzales Transcribed By: Herson Gonzales Transcribed On: 08/23/2020 2:26 PM Electronically signed by: Herson Gonzales 08/23/2020 Thank you for referring JOSE BROWER to [facility]. Legally authenticated by POPE HERSON Serrano 2020-08-23 14:26:18 Procedure Note Provider, [facility] [place] - 08/23/2020 [place] [address] Name: JOSE BROWER Exam Date: 08/23/2020 : 1950 Age 69 Gender: M Physician: CYDNI COYLE Facility: [facility] Facility HSV: Outpatient Exam: KNEE 3V [...] Thank you for referring JOSE BROWER to [facility]. Legally authenticated by POPE HERSON Serrano 2020-08-23 14:26:18 us Cyndi Coyle MD IMG XR PROCEDURES Final Resu lt documented in this encounter Visit Diagnoses Not on filedocumented in this encounter Additional Health Concerns Assessment Noted Time A fall risk assessment has been complete d for the patient 08/23/2020 11:28 AM EDT documented as of this encounter Care Teams Union Contract Representative Relationship Specialty Start Date End Date Cyndi Coyle MD [address] [place] [address] PCP - General 07/23/20 08/28/21 Suhail Castellano MD [address] [facility] [address] [place] [address] PCP - General Family Medicine 08/29/21 10/09/23 Chandler Sears MD [address] [place] [address] Surgeon Neurosurgery 02/28/22 documented as of this encounter
--- OUTSIDE RECORDS SUMMARY | 2024-10-02 12:47 | XMS_ITS | Encounter Summary ---
Author Organization Healthcare Address [address] [place] [address] Care Team Providers Care Photonics Engineering Technician Name Role Phone Cyndi Coyle MD Primary Care Provider [phone] Suhail Castellano MD Primary Care Provider Chandler Sears MD Unavailable [phone] Encounter Details Date Type Department Care Team (Late st Contact Info) Description 09/16/2020 Outside Procedure External Location [address] [place] [address] Cyndi Coyle MD [address] [place] [phone] Social History Tobacco Use Types Packs/Day [...] AM EDT Narrative 09/16/2020 1:44 [place] [address] Name: JOSE BROWER Exam Date: 09/16/2020 : 1950 Age 70 Gender: M Physician: CYNDI COYLE Facility: [facility] Facility HSV: Outpatient Exam: MRI KNEE W/O [...] on 09/16/2020 01:31:23 PMEASTERN Dictated By: Dutch Lmi III Transcribed By: Transcribed On: 09/16/2020 1:31 PM Electronically signed by: Dutch Lim III 09/16/2020 Thank you for referring BROWERJOSE to [facility]. Legally authenticated by ANDREINA Celeste III 2020-09-16 13:31:23 Procedure Note Provider, Generic [place] - 09/16/2020 [place] [address] Name: JOSE BROWER Exam Date: 09/16/2020 : 1950 Age 70 Gender: M Physician: CYNDI COYLE Facility: [facility] Facility HSV: Outpatient Exam: MRI KNEE W/O [...] Thank you for referring JOSE BROWER to [facility]. Legally authenticated by ANDREINA Celeste III 2020-09-16 13:31:23 us Cyndi Coyle MD IMG MRI PROCEDURES Final Res ult documented in this encounter Visit Diagnoses Not on filedocumented in this encounter Additional Health Concerns Assessment Noted Time A fall risk assessment has been complete d for the patient 08/23/2020 11:28 AM EDT documented as of this encounter Care Teams Photonics Engineering Technician Relationship Specialty Start Date End Date Cyndi Coyle MD [address] [place] [phone] PCP - General 07/23/20 08/28/21 Suhail Castellano MD [address] [place] [address] PCP - General Family Medicine 08/29/21 10/09/23 Chandler Sears MD [address] [place] [address] Surgeon Neurosurgery 02/28/22 documented as of this encounter
--- OUTSIDE RECORDS SUMMARY | 2024-10-02 12:47 | XMS_ITS | Clinical Summary ---
Author Organization Healthcare Address [address] [place] [address] Care Team Providers Care Technology And Engineering Teacher Name Role Phone Chandler Sears MD Unavailable [phone] Allergies No known active allergies Medications atorvastatin [...] of 2) 09/05/2001 [facility]-Depression Screening 08/23/2021 08/23/2020 [id number] Vaccine (3 - 2023- season) 2023 09/09/2020, 08/19/2020 [facility]-Influenza Vaccine (#1) 2024 [facility]-RSV Vaccine: 60+ Years o r [...] patient's age to complete this topic Insurance [employer] MEDICARE Care Teams Technology And Engineering Teacher Relationship Specialty Start Date End Date Chandler Sears MD [address] [facility] [address] [place] [address] Surgeon Neurosurgery 02/28/22
--- NOTE | 2024-10-02 13:00 | NM_ITS ---
APPROVED REPORT Exam: Nuclear Stress Test Indication: fm hx, c.p. Patient Location: Outpatient Stress Tech: Tashia Brown ME Tech:Gisela Harman, ARRT, RT (R)(N) Ht: 6 ft 1 in Wt: 176 lbs HR: 58 bpm BP: 114/69 mmHg BSA: 2.04 m2 TID: 1.19 BMI: 23.2 History: fm hx, c.p. Procedure: Patient received 0.4 mg of intravenous Lexiscan, resting heart rate 58 bpm, resting blood pressure 114/69 mmHg, with Lexiscan maximum heart rate achieved was 90 bpm which is % of the maximum predicted heart rate and blood pressure was 144/74 mmHg. With Lexiscan, patient denied any complaint of chest pain. Cardiac Stress and Resting SPECT Images: Cardiac Stress and Resting SPECT images were obtained using technetium 99m Myoview 32.8 mCi stress and 10.07 mCi at rest. Resting and stress imaging in supine and prone positions demonstrate a large sized, mild, predominantly fixed perfusion defect in the septal and inferoseptal LV quinn. There is a small region of reversibility towards the inferior LV wall. Gated imaging demonstrates normal global LV systolic function. LVEF is calculated at 56%. Conclusion: Large sized, mild, predominantly fixed perfusion defect in the septal and inferoseptal LV quinn. There is a small region of reversibility towards the inferior LV wall. Findings are suggestive of partial reversible ischemia. Gated imaging demonstrates normal global LV systolic function. LVEF is calculated at 56%. Electronically signed by : Akua Correa MD 10/05/2024 18:55:44
[2024-10-02] MEDS: ISOTOPE MYOVIEW (PER STUDY) 1 DOSE IV (13:54)
[2024-10-02] MEDS: SODIUM CHLORIDE 0.9% 10ML SYR (RAD ONLY) 10 ML IV ×2 (13:54)
== END 2024-10-02 23:59 | disposition home or self-care (01) ==
LOC: RAD 12:44
PROVIDERS: PCP Family Medicine; Visit Provider Family Medicine
DX: R94.39 Abnormal result of other cardiovascular function study (principal); R06.02 Shortness of breath; R10.9 Unspecified abdominal pain; R07.9 Chest pain, unspecified
CPT/HCPCS: 78452; 93016; 93017; 93018; A9502; J2785

== ENCOUNTER 2024-10-22 12:28 | Outpatient (CLI) | payer MEDICARE, SELFPAY ==
--- OUTSIDE RECORDS SUMMARY | 2024-10-22 12:30 | XMS_ITS | Encounter Summary ---
Author Organization Healthcare Address [address] [place] [address] Care Team Providers Care Trumpet Teacher Name Role Phone Cyndi Coyle MD Primary Care Provider [phone] Suhail Castellano MD Primary Care Provider Chandler Sears MD Unavailable [phone] Encounter Details Date Type Department Care Team (Late st Contact Info) Description 08/23/2020 Outside Procedure External Location [address] [place] [address] Cyndi Coyle MD [address] [place] [address] Social History Tobacco Use Types Packs/Day [...] PM EDT Narrative 08/23/2020 2:38 [place] [address] Name: JOSE BROWER Exam Date: 08/23/2020 : 1950 Age 69 Gender: M Physician: CYNDI COYLE Facility: [facility] Facility HSV: Outpatient Exam: KNEE 3V [...] Thank you for referring JOSE BROWER to [facility]. Legally authenticated by POPE HERSON Serrano 2020-08-23 14:26:18 Procedure Note Provider, Generic [place] - 08/23/2020 [place] [address] Name: JOSE BROWER Exam Date: 08/23/2020 : 1950 Age 69 Gender: M Physician: CYNDI COYLE Facility: [facility] Facility HSV: Outpatient Exam: KNEE 3V [...] Thank you for referring JOSE BROWER to [facility]. Legally authenticated by POPE HERSON Serrano 2020-08-23 14:26:18 us Cyndi Coyle MD IMG XR PROCEDURES Final Resu lt documented in this encounter Visit Diagnoses Not on filedocumented in this encounter Additional Health Concerns Assessment Noted Time A fall risk assessment has been complete d for the patient 08/23/2020 11:28 AM EDT documented as of this encounter Care Teams Trumpet Teacher Relationship Specialty Start Date End Date Cyndi Coyle MD [address] [place] [address] PCP - General 07/23/20 08/28/21 Suhail Castellano MD [address] [facility] [address] [place] [address] PCP - General Family Medicine 08/29/21 10/09/23 Chandler Sears MD [address] [place] [address] Surgeon Neurosurgery 02/28/22 documented as of this encounter
--- OUTSIDE RECORDS SUMMARY | 2024-10-22 12:30 | XMS_ITS | Clinical Summary ---
Author Organization Healthcare Address [address] [place] [address] Care Team Providers Care Director Business Integration Name Role Phone Chandler Sears MD Unavailable [phone] Allergies No known active allergies Medications atorvastatin [...] Screening 1950 [facility]-Medicare Annual Wellness (AWV) 1950 [facility]-Infant/Child/Adol SDOH Screenings 1950 [facility]- SDOH Screenings 09/05/1969 [facility]-Adult SDOH Screenings 09/05/1969 [facility]Y-DTaP,Tdap,and Td Vaccine s (1 - Tdap) 09/05/1970 CT Colonography 09/05/1996 Colonoscopy 09/05/1996 FIT-DNA 09/05/1996 FIT 09/05/1996 FOBT 09/05/1996 Sigmoidoscopy 09/05/1996 [facility]-Colorectal Cancer Screening 09/05/1996 [facility]-Pneumococcal Vaccine: 50 + Years (1 of 1 - PCV) 09/05/2001 UKY-Zoster Vaccines (1 of 2) 09/05/2001 [facility]-Depression Screening 08/23/2021 08/23/2020 [id number] Vaccine (3 - 2023- season) 2023 09/09/2020, [...] this topic Insurance [employer] Care Teams Director Business Integration Relationship Specialty Start Date End Date Chandler Sears MD [address] [facility] [address] [place] [address] Surgeon Neurosurgery 02/28/22
--- OUTSIDE RECORDS SUMMARY | 2024-10-22 12:30 | XMS_ITS | Encounter Summary ---
Author Organization Healthcare Address [address] [place] [address] Care Team Providers Care Sr. Payroll Manager Name Role Phone Cyndi Coyle MD Primary Care Provider [phone] Suhail Castellano MD Primary Care Provider Chandler Sears MD Unavailable [phone] Encounter Details Date Type Department Care Team (Late st Contact Info) Description 09/16/2020 Outside Procedure External Location [address] [place] [address] Cyndi Coyle MD [address] [place] [address] Social History Tobacco Use Types Packs/Day [...] AM EDT Narrative 09/16/2020 1:44 [place] [address] Name: JOSE BROWER Exam Date: 09/16/2020 : 1950 Age 70 Gender: M Physician: CYNDI COYLE Facility: [facility] Facility HSV: Outpatient Exam: MRI KNEE W/O [...] 09/16/2020 Thank you for referring BROWERJOSE to [facility]. Legally authenticated by ANDREINA Celeste III 2020-09-16 13:31:23 Procedure Note Provider, Generic [place] - 09/16/2020 [place] [address] Name: JOSE BROWER Exam Date: 09/16/2020 : 1950 Age 70 Gender: M Physician: CYNDI COYLE Facility: [facility] Facility HSV: Outpatient Exam: MRI KNEE W/O [...] Thank you for referring JOSE BROWER to [facility]. Legally authenticated by ANDREINA Celeste III 2020-09-16 13:31:23 us Cyndi Coyle MD IMG MRI PROCEDURES Final Res ult documented in this encounter Visit Diagnoses Not on filedocumented in this encounter Additional Health Concerns Assessment Noted Time A fall risk assessment has been complete d for the patient 08/23/2020 11:28 AM EDT documented as of this encounter Care Teams Sr. Payroll Manager Relationship Specialty Start Date End Date Cyndi Coyle MD [address] [place] [address] PCP - General 07/23/20 08/28/21 Suhail Castellano MD [address] [place] [address] PCP - General Family Medicine 08/29/21 10/09/23 Chandler Sears MD [address] [place] [address] Surgeon Neurosurgery 02/28/22 documented as of this encounter
--- NOTE | 2024-10-22 13:00 | CA_ITS ---
APPROVED REPORT EXAM: Comprehensive 2D, Doppler, and color-flow Echocardiogram [employer]: Gabriella Kidd RDCS Ht: 6 ft 0 in Wt: 174lbs BSA: 2.01 BP: 131/68 mmHg Indications: CP ABN GXT M-Mode Dimensions RVDd 1.87 cm (0.9-2.6) LA Diam 3.66 cm (1.9-4.0) LVDd 5.85 cm (3.5-5.7) LVDs 4.37 cm (3.5-5.7) IVSd 0.85 cm (0.6-1.1) PWd 0.70 cm (0.6-1.1) EF (Teich) 49.20% FS 25.30% EDV (Teich) 169.90 mL TAPSE 3.19 (<1.7) ESV (Teich) 86.30 mL LV Diastology E Decel Time 263 (160-240 msec) E/A Ratio 1.0 Mitral Valve MV E Max Clay. 96.0 (40-130 cm/s) MV A Velocity 95.0 (40-130 cm/s) E/A Ratio 1.01 MV PHT 77.0 ms Left Ventricle The left ventricle is normal size. Left ventricular systolic function is normal. The left ventricular ejection fraction is within the normal range. There is normal left ventricular wall thickness. There is normal LV segmental wall motion. The left ventricular diastolic function is normal. LVEF is 55% Right Ventricle The right ventricle is normal size. The right ventricular systolic function is normal. Atria The left atrium size is normal. The right atrium size is normal. There is no color Doppler evidence of interatrial shunt. Aortic Valve The aortic valve opens well. There is no hemodynamically significant aortic valvular stenosis. Mild aortic regurgitation is present. Mitral Valve The mitral valve is normal in structure. No evidence of mitral valve stenosis. Trace mitral regurgitation is present. Tricuspid Valve The tricuspid valve leaflets are thin and pliable. Trace tricuspid regurgitation. There is insufficient TR jet to estimate RVSP. Pulmonic Valve The pulmonary valve is grossly normal in structure. Trace pulmonic valve regurgitation is present. Great Vessels The aortic root is normal in size. IVC is normal in size and collapses >50% with inspiration. Pericardium There is no pericardial effusion. Other Information Study Quality: Fair Conclusion Normal biventricular systolic function. Mild AI. Electronically signed by : Akua Correa MD 10/22/2024 13:33:51
== END 2024-10-22 23:59 | disposition home or self-care (01) ==
LOC: RT 12:28
PROVIDERS: PCP Family Medicine; Visit Provider Physician Assistant
DX: I35.1 Nonrheumatic aortic (valve) insufficiency (principal); I10 Essential (primary) hypertension; R93.1 Abnormal findings on diagnostic imaging of heart and coronary circulation; R07.9 Chest pain, unspecified; R94.39 Abnormal result of other cardiovascular function study
CPT/HCPCS: 93306

== ENCOUNTER 2024-11-14 07:39 | Day surgery (SDC) | payer MEDICARE, SELFPAY ==
[2024-11-14] VITALS (12 sets, daily range): BP systolic 99–173; BP diastolic 55–84; PULSE 51–64; RESP 16–20; TEMP 36.6–37.1; O2SAT 92–100; BMI 23.8
--- NOTE | 2024-11-14 07:06 | IR_ITS ---
APPROVED REPORT Patient Location: Outpatient PROCEDURES Left heart catheterization Left ventriculogram Selective coronary angiogram INDICATION Abnormal Myoview, Angina pectoris Informed consent was obtained prior to the procedure. COMPLICATIONS NONE Estimated Blood Loss: LESS THAN 10 ML TECHNIQUE One percent lidocaine used to anesthetize the right anterior aspect of the wrist. The right radial artery was accessed via the Seldinger technique. A 6 Armenian sheath was placed in the right radial artery. 2.5 mg of Verapamil, 800 mcg of nitroglycerin, 1mg Lidocaine and 5000 U Heparin were given through the arterial sheath. The JL3 catheter was also used to perform left heart catheterization, left ventriculogram and selective coronary angiogram. At the end of the procedure the sheath was removed good hemostasis was achieved using Traclet band, patient was transferred to the postop holding area in stable condition. ANGIOGRAPHIC RESULTS The left main artery Normal The left anterior descending artery Has a proximal to mid vessel concentric 20 to 30% stenosis with mild 10% luminal regularities The circumflex artery Diffuse 10% luminal regularities The right coronary artery Large and dominant with an ostial 10 to 20% stenosis and a mid vessel 10 to 20% stenosis The PHILLIPS ventriculogram reveals Preserved at 60% The left ventricular end-diastolic pressure 10 mmHg IMPRESSION Mild nonflow limiting coronary artery disease Normal ejection fraction Normal LVEDP PLAN 1. Aggressive risk factor modification with a goal LDL less than 55 to be achieved with high intensity statin 2. Avoidance of tobacco products Electronically signed by : Jamar Fernandez MD 11/14/2024 16:33:37
[2024-11-14 08:23] LABS: Hematocrit 43.0 % (42.0-52.0); Hemoglobin 14.5 g/dL (14.1-18.0); Immature Granulocytes % 0.3 %; Mean Corpuscular HGB Conc 33.7 g/dL (31.8-35.4); Mean Corpuscular Hemoglobin 31.5 pg (27.0-31.2); Mean Corpuscular Volume 93.3 fl (80-94); Nucleated Red Blood Cells % 0 %; Platelet Count 156 K/mm3 (142-424); Red Blood Count 4.61 M/mm3 (4.60-6.20); Red Cell Distribution Width-SD 45.1 fL; White Blood Count 6.9 K/mm3 (4.8-10.8)
[2024-11-14 08:30] LABS: Anion Gap 13.6 mEq/L (5-15); Blood Urea Nitrogen 10 mg/dl (9-20); Calcium 9.2 mg/dl (8.4-10.2); Carbon Dioxide 28 mmol/L (22.0-30.0); Chloride 102 mmol/L (98-107); Creatinine Clearance Estimated 74 mL/min (50-200); Creatinine,Serum 0.80 mg/dl (0.66-1.25); Estimated Glomerular Filt Rate 95 ml/min (>60); GFR (African American) 115 ML/MIN (>60); Glucose 120 mg/dl (74-100); Potassium 3.6 mmoL/L (3.5-5.1); Sodium 140 mmol/L (136-145)
[2024-11-14] MEDS: HEPARIN 1,000 UNITS/ML 10ML VIAL (CATH LAB) 5000 UNIT IV (09:41)
[2024-11-14] MEDS: VERAPAMIL 2.5MG/ML 2ML VIAL 2.5 MG IV (09:41)
[2024-11-14] MEDS: LIDOCAINE 1% 10ML MDV 10 ML IJ (09:41)
[2024-11-14] MEDS: 0.9 % SODIUM CHLORIDE 500 ML 25 ML IV (09:42)
[2024-11-14] MEDS: HEPARIN 1,000 UNITS/500ML NS (CATH LAB) 3000 UNIT IV (09:42)
[2024-11-14] MEDS: NITROGLYCERIN 800MCG/8ML SYR (CATH LAB) 800 MCG IA (09:42)
[2024-11-14] MEDS: FENTANYL 100MCG/2ML VIAL 50 MCG IV (10:09)
[2024-11-14] MEDS: MIDAZOLAM HCL 1MG/ML 5ML VIAL 1 MG IV (10:09)
[2024-11-14] MEDS: IOPAMIDOL-370 (76%);100ML BOTTLE 50 ML IV (10:34)
== END 2024-11-14 12:39 | disposition home or self-care (01) ==
PROVIDERS: PCP Family Medicine; Visit Provider Internal Medicine
PROC: 4A023N7 Measurement of Cardiac Sampling and Pressure, Left Heart, Percutaneous Approach (ICD-10-PCS; CPT 93452; principal; 2024-11-14 07:30)
DX: I25.119 Atherosclerotic heart disease of native coronary artery with unspecified angina pectoris (principal); Z79.82 Long term (current) use of aspirin; Z79.899 Other long term (current) drug therapy; R73.03 Prediabetes; M50.30 Other cervical disc degeneration, unspecified cervical region; N40.0 Benign prostatic hyperplasia without lower urinary tract symptoms; E78.5 Hyperlipidemia, unspecified; I10 Essential (primary) hypertension
CPT/HCPCS: 80048; 85025; 93452; 93566; 99152; C1725; C1769; J1200; J1644; J2004; J3010; J7040; Q9967

== ENCOUNTER 2024-11-20 14:41 | Outpatient (CLI) | payer MEDICARE, SELFPAY ==
--- OUTSIDE RECORDS SUMMARY | 2024-11-20 15:01 | XMS_ITS | Encounter Summary ---
Author Organization Healthcare Address [address] [place] [address] Care Team Providers Care Wheat Combine Driver Name Role Phone Cyndi Coyle MD Primary Care Provider [phone] Suhail Castellano MD Primary Care Provider Chandler Sears MD Unavailable [phone] Encounter Details Date Type Department Care Team (Late st Contact Info) Description 08/23/2020 Outside Procedure External Location [address] [place] [address] Cyndi Coyle MD [address] [place] [address] Social History Tobacco Use Types Packs/Day [...] PM EDT Narrative 08/23/2020 2:38 [place] [address] Name: JOSE BROWER Exam Date: 08/23/2020 : 1950 Age 69 Gender: M Physician: CYNDI COYLE Facility: [facility] Facility HSV: Outpatient Exam: KNEE 3V LT [...] Thank you for referring JOSE BROWER to [facility]. Legally authenticated by POPE HERSON Serrano 2020-08-23 14:26:18 Procedure Note Provider, Generic [place] - 08/23/2020 [place] [address] Name: JOSE BROWER Exam Date: 08/23/2020 : 1950 Age 69 Gender: M Physician: CYNDI COYLE Facility: [facility] Facility HSV: Outpatient Exam: KNEE 3V LT [...] Thank you for referring JOSE BROWER to [facility]. Legally authenticated by POPE HERSON Serrano 2020-08-23 14:26:18 us Cyndi Coyle MD IMG XR PROCEDURES Final Resu lt documented in this encounter Visit Diagnoses Not on filedocumented in this encounter Additional Health Concerns Assessment Noted Time A fall risk assessment has been complete d for the patient 08/23/2020 11:28 AM EDT documented as of this encounter Care Teams Wheat Combine Driver Relationship Specialty Start Date End Date Cyndi Coyle MD [address] [place] [address] PCP - General 07/23/20 08/28/21 Suhail Castellano MD [address] [facility] [address] [place] [address] PCP - General Family Medicine 08/29/21 10/09/23 Chandler Sears MD [address] [place] [address] Surgeon Neurosurgery 02/28/22 documented as of this encounter
--- OUTSIDE RECORDS SUMMARY | 2024-11-20 15:01 | XMS_ITS | Clinical Summary ---
Author Organization Healthcare Address [address] [place] [address] Care Team Providers Care Photographic Laboratory Supervisor Name Role Phone Chandler Sears MD Unavailable [phone] Allergies No known active allergies Medications atorvastatin [...] of 2) 09/05/2001 [facility]-Depression Screening 08/23/2021 08/23/2020 [id number] Vaccine (3 - 2024- season) 2024 09/09/2020, 08/19/2020 [facility]-Influenza Vaccine (#1) 2024 [facility]-RSV [...] this topic Insurance [employer] Care Teams Photographic Laboratory Supervisor Relationship Specialty Start Date End Date Chandler Sears MD [address] [facility] [address] [place] [address] Surgeon Neurosurgery 02/28/22
--- OUTSIDE RECORDS SUMMARY | 2024-11-20 15:01 | XMS_ITS | Encounter Summary ---
Author Organization Healthcare Address [address] [place] [address] Care Team Providers Care Lawn Service Manager Name Role Phone Cyndi Coyle MD Primary Care Provider [phone] Suhail Castellano MD Primary Care Provider Chandler Sears MD Unavailable [phone] Encounter Details Date Type Department Care Team (Late st Contact Info) Description 09/16/2020 Outside Procedure External Location [address] [place] [address] Cyndi Coyle MD [address] [place] [address] Social History Tobacco Use Types Packs/Day [...] AM EDT Narrative 09/16/2020 1:44 [place] [address] Name: JOSE BROWER Exam Date: 09/16/2020 : 1950 Age 70 Gender: M Physician: CYNDI COYLE Facility: [facility] Facility HSV: Outpatient Exam: MRI KNEE [...] 09/16/2020 Thank you for referring BROWERJOSE to [facility]. Legally authenticated by ANDREINA Celeste III 2020-09-16 13:31:23 Procedure Note Provider, Generic [place] - 09/16/2020 [place] [address] Name: JOSE BROWER Exam Date: 09/16/2020 : 1950 Age 70 Gender: M Physician: CYNDI COYLE Facility: [facility] Facility HSV: Outpatient Exam: MRI KNEE [...] Thank you for referring JOSE BROWER to [facility]. Legally authenticated by ANDREINA Celeste III 2020-09-16 13:31:23 us Cyndi Coyle MD IMG MRI PROCEDURES Final Res ult documented in this encounter Visit Diagnoses Not on filedocumented in this encounter Additional Health Concerns Assessment Noted Time A fall risk assessment has been complete d for the patient 08/23/2020 11:28 AM EDT documented as of this encounter Care Teams Lawn Service Manager Relationship Specialty Start Date End Date Cyndi Coyle MD [address] [place] [address] PCP - General 07/23/20 08/28/21 Suhail Castellano MD [address] [place] [address] PCP - General Family Medicine 08/29/21 10/09/23 Chandler Sears MD [address] [place] [address] Surgeon Neurosurgery 02/28/22 documented as of this encounter
[2024-11-20 15:08] LABS: Hematocrit 40.7 % (42.0-52.0); Hemoglobin 13.4 g/dL (14.1-18.0); Immature Granulocytes % 0.4 %; Mean Corpuscular HGB Conc 32.9 g/dL (31.8-35.4); Mean Corpuscular Hemoglobin 30.8 pg (27.0-31.2); Mean Corpuscular Volume 93.6 fl (80-94); Nucleated Red Blood Cells % 0 %; Platelet Count 149 K/mm3 (142-424); Red Blood Count 4.35 M/mm3 (4.60-6.20); Red Cell Distribution Width-SD 45.4 fL; White Blood Count 5.1 K/mm3 (4.8-10.8)
[2024-11-20 15:42] LABS: Albumin Level 4.1 g/dl (3.5-5.0); Chloride 107 mmol/L (98-107); Potassium 4.3 mmoL/L (3.5-5.1); Sodium 140 mmol/L (136-145)
[2024-11-20 15:45] LABS: Alanine Aminotransferase 16 U/L (12-78); Alkaline Phosphatase 70 U/L (38-126); Anion Gap 8.3 mEq/L (5-15); Aspartate Amino Transferase 22 U/L (17-59); Bilirubin,Direct 0.0 mg/dl (0.0-0.4); Bilirubin,Indirect 0.6 mg/dL (0.0-0.9); Bilirubin,Total 0.6 mg/dl (0.2-1.3); Bilirubin,Unconjugated 0.6 mg/dL (0.0-1.1); Blood Urea Nitrogen 12 mg/dl (9-20); Calcium 9.2 mg/dl (8.4-10.2); Carbon Dioxide 29 mmol/L (22.0-30.0); Cholesterol 146 mg/dl (140-200); Creatinine,Serum 0.70 mg/dl (0.66-1.25); Estimated Glomerular Filt Rate 111 ml/min (>60); GFR (African American) 134 ML/MIN (>60); Glucose 104 mg/dl (74-100); Total Protein,Serum 6.5 g/dl (6.3-8.2); Triglycerides 96 mg/dl (30-150)
[2024-11-20 15:46] LABS: Magnesium 2.0 mg/dl (1.6-2.3)
[2024-11-20 16:03] LABS: Free T4 (Free Thyroxine) 1.11 ng/dl (0.78-2.19)
[2024-11-20 16:16] LABS: Thyroid Stimulating Hormone 1.79 uIU/mL (0.465-4.68)
[2024-11-20 17:49] LABS: HDL Cholesterol 54 mg/dl (40-60)
== END 2024-11-20 23:59 | disposition home or self-care (01) ==
LOC: LAB 14:41
PROVIDERS: PCP Family Medicine; Visit Provider Physician Assistant
DX: E78.5 Hyperlipidemia, unspecified (principal); I10 Essential (primary) hypertension
CPT/HCPCS: 36415; 80048; 80061; 80076; 83735; 84439; 84443; 85025

== ENCOUNTER 2025-03-03 11:40 | Outpatient (CLI) | payer MEDICARE, SELFPAY ==
--- OUTSIDE RECORDS SUMMARY | 2025-03-03 11:43 | XMS_ITS | Clinical Summary ---
Author Organization Healthcare Address [address] [place] [address] Care Team Providers Care Grant Specialist Name Role Phone Chandler Sears MD Unavailable [phone] Allergies No known active allergies Medications atorvastatin (Lipitor) 10 MG tablet Take 1 tablet by mouth every night. Active ibuprofen 200 MG tablet Take 200 [...] Noted Date Diagnosed Date Hyperlipidemia, unspecified 08/23/2020 Gait abnormality 08/23/2020 BPH (benign prostatic hyperplasia) 05/07/2020 Resolved Problems Problem Noted Date Diagnosed Date Resolved Date Acute pain of left knee 08/23/2020 09/2 03/2024 Difficulty with speech 07/02/202008/23 Urine abnormality 05/07/2020 [...] of 2) 09/05/2001 [facility]-Depression Screening 08/23/2021 08/23/2020 [id number] Vaccine (3 - 2024- season) 2024 09/09/2020, 08/19/2020 [facility]Y-Influenza Vaccine (#1) 2024 [facility]Y-RSV Vaccine: 60+ Years o r (1 - 1-dose 75+ series) 09/05/2026 [facility]-Obesity Intervention Completed 04/11/2022 HPV Vaccines (No Doses Required) Completed [facility]-HIB Vaccines Aged Out No longer e [...] patient's age to complete this topic Insurance [employer] Care Teams Grant Specialist Relationship Specialty Start Date End Date Chandler Sears MD [address] [facility] [address] [place] [address] Surgeon Neurosurgery 02/28/22
--- OUTSIDE RECORDS SUMMARY | 2025-03-03 11:43 | XMS_ITS | Encounter Summary ---
Author Organization Healthcare Address [address] [place] [address] Care Team Providers Care Cheesemaker Name Role Phone Cyndi Coyle MD Primary Care Provider [phone] Suhail Castellano MD Primary Care Provider Chandler Sears MD Unavailable [phone] Encounter Details Date Type Department Care Team (Late st Contact Info) Description 09/16/2020 Outside Procedure External Location [address] [place] [address] Cyndi Coyle MD [address] [place] [address] Social History Tobacco Use Types Packs/Day [...] AM EDT Narrative 09/16/2020 1:44 [place] [address] Name: JOSE BROWER Exam Date: 09/16/2020 : 1950 Age 70 Gender: M Physician: CYNDI COYLE Facility: [facility] Facility HSV: Outpatient Exam: MRI [...] 09/16/2020 Thank you for referring BROWERJOSE to [facility]. Legally authenticated by ANDREINA Celeste III 2020-09-16 13:31:23 Procedure Note Provider, Generic [place] - 09/16/2020 [place] [address] Name: JOSE BROWER Exam Date: 09/16/2020 : 1950 Age 70 Gender: M Physician: CYNDI COYLE Facility: [facility] Facility HSV: Outpatient Exam: MRI [...] by Dutch Lim III, MD Transcribed by Jiemna Gallo Authenticated by Dutch Lim III, MD on 09/16/2020 01:31:23 PMEASTERN Dictated By: Dutch Lim III Transcribed By: Transcribed On: 09/16/2020 1:31 PM Electronically signed by: Dutch Lim III 09/16/2020 Thank you for referring JOSE BROWER to [facility]. Legally authenticated by ANDREINA Celeste III 2020-09-16 13:31:23 us Cyndi Coyle MD IMG MRI PROCEDURES Final Res ult documented in this encounter Visit Diagnoses Not on filedocumented in this encounter Additional Health Concerns Assessment Noted Time A fall risk assessment has been complete d for the patient 08/23/2020 11:28 AM EDT documented as of this encounter Care Teams Cheesemaker Relationship Specialty Start Date End Date Cyndi Coyle MD [address] [place] [address] PCP - General 07/23/20 08/28/21 Suhail Castellano MD [address] [place] [address] PCP - General Family Medicine 08/29/21 10/09/23 Chandler Sears MD [address] [place] [address] Surgeon Neurosurgery 02/28/22 documented as of this encounter
--- OUTSIDE RECORDS SUMMARY | 2025-03-03 11:43 | XMS_ITS | Encounter Summary ---
Author Organization Healthcare Address [address] [place] [address] Care Team Providers Care Director Of Provider Relations Name Role Phone Cyndi Coyle MD Primary Care Provider [phone] Suhail Castellano MD Primary Care Provider Chandler Sears MD Unavailable [phone] Encounter Details Date Type Department Care Team (Late st Contact Info) Description 08/23/2020 Outside Procedure External Location [address] [place] [address] Cyndi Coyle MD [address] [place] [address] Social History Tobacco Use Types Packs/Day [...] PM EDT Narrative 08/23/2020 2:38 [place] [address] Name: JOSE BROWER Exam Date: 08/23/2020 : 1950 Age 69 Gender: M Physician: CYNDI COYLE Facility: [facility] Facility HSV: Outpatient Exam: KNEE 3V LT [...] to [facility]. Legally authenticated by POPE HERSON Serrano 2020-08-23 14:26:18 Procedure Note Provider, Generic [place] - 08/23/2020 [place] [address] Name: JOSE BROWER Exam Date: 08/23/2020 : 1950 Age 69 Gender: M Physician: CYNDI COYLE Facility: [facility] Facility HSV: Outpatient Exam: KNEE 3V LT [...] to [facility]. Legally authenticated by POPE HERSON Serrano 2020-08-23 14:26:18 us Cyndi Coyle MD IMG XR PROCEDURES Final Resu lt documented in this encounter Visit Diagnoses Not on filedocumented in this encounter Additional Health Concerns Assessment Noted Time A fall risk assessment has been complete d for the patient 08/23/2020 11:28 AM EDT documented as of this encounter Care Teams Director Of Provider Relations Relationship Specialty Start Date End Date Cyndi Coyle MD [address] [place] [address] PCP - General 07/23/20 08/28/21 Suhail Castellano MD [address] [facility] [address] [place] [address] PCP - General Family Medicine 08/29/21 10/09/23 Chandler Sears MD [address] [place] [address] Surgeon Neurosurgery 02/28/22 documented as of this encounter
[2025-03-03 12:43] LABS: Hematocrit 41.5 % (42.0-52.0); Hemoglobin 13.9 g/dL (14.1-18.0); Immature Granulocytes % 0.2 %; Mean Corpuscular HGB Conc 33.5 g/dL (31.8-35.4); Mean Corpuscular Hemoglobin 31.5 pg (27.0-31.2); Mean Corpuscular Volume 94.1 fl (80-94); Nucleated Red Blood Cells % 0 %; Platelet Count 154 K/mm3 (142-424); Red Blood Count 4.41 M/mm3 (4.60-6.20); Red Cell Distribution Width-SD 46.3 fL; White Blood Count 8.0 K/mm3 (4.8-10.8)
[2025-03-03 12:53] LABS: Alanine Aminotransferase 30 U/L (12-78); Albumin Level 4.2 g/dl (3.5-5.0); Alkaline Phosphatase 96 U/L (38-126); Anion Gap 7.1 mEq/L (5-15); Aspartate Amino Transferase 26 U/L (17-59); Bilirubin,Direct 0.1 mg/dl (0.0-0.4); Bilirubin,Indirect 0.8 mg/dL (0.0-0.9); Bilirubin,Total 0.9 mg/dl (0.2-1.3); Bilirubin,Unconjugated 0.8 mg/dL (0.0-1.1); Blood Urea Nitrogen 13 mg/dl (9-20); Calcium 9.2 mg/dl (8.4-10.2); Carbon Dioxide 30 mmol/L (22.0-30.0); Chloride 105 mmol/L (98-107); Cholesterol 95 mg/dl (140-200); Creatinine,Serum 0.90 mg/dl (0.66-1.25); Estimated Glomerular Filt Rate 83 ml/min (>60); GFR (African American) 100 ML/MIN (>60); Glucose 129 mg/dl (74-100); HDL Cholesterol 65 mg/dl (40-60); Magnesium 2.0 mg/dl (1.6-2.3); Potassium 4.1 mmoL/L (3.5-5.1); Sodium 138 mmol/L (136-145); Total Protein,Serum 6.7 g/dl (6.3-8.2); Triglycerides 80 mg/dl (30-150)
[2025-03-03 13:10] LABS: Free T4 (Free Thyroxine) 1.22 ng/dl (0.78-2.19)
[2025-03-03 13:24] LABS: Thyroid Stimulating Hormone 1.54 uIU/mL (0.465-4.68)
== END 2025-03-03 23:59 | disposition home or self-care (01) ==
LOC: LAB 11:40
PROVIDERS: PCP Family Medicine; Visit Provider Physician Assistant
DX: E78.49 Other hyperlipidemia (principal); I10 Essential (primary) hypertension; I25.10 Atherosclerotic heart disease of native coronary artery without angina pectoris
CPT/HCPCS: 36415; 80048; 80061; 80076; 83735; 84439; 84443; 85025